=== PATIENT | male | born 1975 | race Caucasian/White ===

== ENCOUNTER → 2022-10-24 11:14 | Outpatient (CLI) | payer MEDICARE, SELFPAY ==
--- NOTE | 2022-10-24 11:20 | XR_ITS ---
FINAL REPORT CLINICAL HISTORY: pain FINDINGS: Three Views were obtained. There is no acute fracture. There is no malalignment. The disc spaces are maintained. IMPRESSION: No acute process. Reviewed, Interpreted and Dictated by Pascual Marino MD Transcribed by Carlos Dacosta Authenticated and [facility]
== END ==
LOC: RAD 11:15
PROVIDERS: PCP Family Medicine; Visit Provider Family Medicine
DX: M54.2 Cervicalgia (principal)
CPT/HCPCS: 72040

== ENCOUNTER → 2022-11-30 14:41 | Outpatient (CLI) | payer MEDICARE, SELFPAY ==
--- NOTE | 2022-11-30 14:41 | MR_ITS ---
FINAL REPORT TECHNIQUE: Multiplanar MR without contrast CLINICAL HISTORY: neck pain, RUE radiculopathy, positive Spurling s FINDINGS: Limited images of the posterior fossa are unremarkable. Alignment is normal. Cervical spinal cord shows normal signal and contour. C2-3: Unremarkable C3-4: Unremarkable C4-5: Unremarkable C5-6: Minimal annular disc bulge without canal stenosis. C6-7: Unremarkable C7-T1: Unremarkable IMPRESSION: Minimal annular disc bulge at C5-6. Reviewed, Interpreted and Dictated by Calli Tena MD Transcribed by Shilpa Beltran Authenticated and [facility]
--- NOTE | 2022-11-30 14:50 | XR_ITS ---
FINAL REPORT CLINICAL HISTORY: LOOKING FOR METAL IN EYE. PRIOR HX METAL IN RIGHT EYE COMPARISON: None FINDINGS: ORBITS Look up and look down views were obtained. No fracture is identified. The sinuses are clear. No metallic foreign body is identified. IMPRESSION: No foreign body identified in the orbits. Reviewed, Interpreted and Dictated by Calli eTna MD Transcribed by Yoli Sow Authenticated and [facility]
== END ==
LOC: RAD 14:41
PROVIDERS: PCP Family Medicine; Visit Provider Physician Assistant
DX: M54.2 Cervicalgia (principal); H05.53 Retained (old) foreign body following penetrating wound of bilateral orbits
CPT/HCPCS: 70200; 72141; 76376

== ENCOUNTER 2023-11-13 10:25 | Outpatient (CLI) | payer MEDICARE, SELFPAY ==
--- NOTE | 2023-11-13 10:26 | CT_ITS ---
FINAL REPORT TECHNIQUE: The patient was injected with IV contrast. Axial images were obtained through the chest in a PE protocol. 3-D reconstruction images were also performed. Individualized dose reduction techniques using automated exposure control or adjustment of the MA and/or KV according to patient's size were employed. CLINICAL HISTORY: cp/dyspnea/abnl ecg/syncope COMPARISON: None FINDINGS: Mediastinal vasculature is adequately opacified. No pulmonary artery filling defects are identified to suggest PE. There is no aortic dissection. There is no axillary adenopathy. There is no hilar or mediastinal adenopathy. The heart size is normal. There is no pericardial or pleural effusion. Limited images of the upper abdomen show fatty infiltration of the liver and multiple gallstones in the gallbladder.. No suspicious infiltrate or nodule is identified. IMPRESSION: No pulmonary embolus or dissection. Fatty infiltration of the liver and multiple gallstones in the gallbladder. Reviewed, Interpreted and Dictated by Pascual Marino MD Transcribed by Jessica Koroma Authenticated and [facility]
[2023-11-13] MEDS: SODIUM CHLORIDE 0.9% 10ML SYR (RAD ONLY) 10 ML IV (10:53)
[2023-11-13] MEDS: IOPAMIDOL-370 (76%);100ML BOTTLE 75 ML IV (10:53)
[2023-11-13] MEDS: 0.9 % SODIUM CHLORIDE 50 ML VIAL IV (10:56)
[2023-11-13 10:57] LABS: Blood Urea Nitrogen 9 mg/dl (9-20); Estimated Glomerular Filt Rate 103 ml/min (>60); GFR (African American) 125 ML/MIN (>60)
== END 2023-11-13 23:59 | disposition home or self-care (01) ==
LOC: RAD 10:26
PROVIDERS: PCP Physician Assistant; Visit Provider Nurse Practitioner
DX: R55 Syncope and collapse (principal); R94.31 Abnormal electrocardiogram [ECG] [EKG]; R06.00 Dyspnea, unspecified; R07.9 Chest pain, unspecified; E87.6 Hypokalemia; Z72.0 Tobacco use
CPT/HCPCS: 36415; 71275; 82565; 84520; Q9967

== ENCOUNTER 2023-11-23 18:00 | Outpatient (CLI) | payer MEDICARE, SELFPAY ==
[2023-11-23 18:38] LABS: Basophils # 0.1 K/mm3 (0-0.2); Basophils % 0.6 % (0.1-2.0); Eosinophils # 0.2 K/mm3 (0.0-0.4); Eosinophils % 1.9 % (0.1-12.0); Hematocrit 49.2 % (42.0-52.0); Hemoglobin 16.3 g/dL (14.1-18.0); Lymphocytes # 1.5 K/mm3 (0.7-4.5); Lymphocytes % 17.9 % (10-50); Mean Corpuscular HGB Conc 33.1 g/dL (31.8-35.4); Mean Corpuscular Hemoglobin 31.3 pg (27.0-31.2); Mean Corpuscular Volume 94.7 fl (80-94); Mean Platelet Volume 10.7 fl (7.4-10.4); Monocytes # 0.6 K/mm3 (0.1-1.0); Monocytes % 6.6 % (1.7-9.3); Neutrophils # 6.2 K/mm3 (1.8-7.8); Platelet Count 220 K/mm3 (142-424); Red Cell Distribution Width 13.2 % (11.5-17.5); White Blood Count 8.4 K/mm3 (4.8-10.8)
[2023-11-23 18:58] LABS: Alanine Aminotransferase 48 U/L (12-78); Albumin Level 4.3 g/dl (3.5-5.0); Alkaline Phosphatase 132 U/L (38-126); Anion Gap 9.6 mEq/L (5-15); Aspartate Amino Transferase 40 U/L (17-59); Bilirubin,Direct 0.3 mg/dl (0.0-0.4); Bilirubin,Indirect 0.4 mg/dL (0.0-0.9); Bilirubin,Total 0.7 mg/dl (0.2-1.3); Bilirubin,Unconjugated 0.4 mg/dL (0.0-1.1); Blood Urea Nitrogen 11 mg/dl (9-20); Calcium 9.4 mg/dl (8.4-10.2); Carbon Dioxide 26 mmol/L (22.0-30.0); Chloride 108 mmol/L (98-107); Chol/HDL Ratio 5.9 (1-3.5); Cholesterol 165 mg/dl (140-200); Estimated Glomerular Filt Rate 120 ml/min (>60); GFR (African American) 146 ML/MIN (>60); Glucose 110 mg/dl (74-100); HDL Cholesterol 28 mg/dl (40-60); Potassium 3.6 mmoL/L (3.5-5.1); Sodium 140 mmol/L (136-145); Total Protein,Serum 6.8 g/dl (6.3-8.2); Triglycerides 204 mg/dl (30-150); VLDL Cholesterol 41 mg/dL (0-40)
[2023-11-23 19:04] LABS: Hemoglobin A1C 5.8 % (4.0-6.0)
[2023-11-23 19:26] LABS: Thyroid Stimulating Hormone 2.79 uIU/mL (0.465-4.68)
== END 2023-11-23 23:59 | disposition home or self-care (01) ==
LOC: LAB.DROPOF 11-24 09:16
PROVIDERS: Nurse Practitioner; PCP Nurse Practitioner Acute Care; Visit Provider Nurse Practitioner Acute Care
DX: R94.31 Abnormal electrocardiogram [ECG] [EKG] (principal); R06.00 Dyspnea, unspecified; R07.9 Chest pain, unspecified; Z72.0 Tobacco use; Z79.899 Other long term (current) drug therapy
CPT/HCPCS: 80048; 80061; 80076; 83036; 83735; 84439; 84443; 85025

== ENCOUNTER 2023-12-18 08:08 | Outpatient (CLI) | payer MEDICARE, SELFPAY ==
--- NOTE | 2023-12-18 08:09 | NM_ITS ---
APPROVED REPORT Exam: Nuclear Stress Test Indication: Chest pain, SOB, HTN, Hx of VT, Tobacco use, Family history Patient Location: Outpatient Stress Tech: Rachael Carmen MI Tech:Donita Manning, ARRT, RT (R)(N) Ht: 6 ft 0 in Wt: 170 lbs HR: 90 bpm BP: 126/82 mmHg BSA: 1.99 m2 TID: 1.15 BMI: 15.0 History: Chest pain, SOB, HTN, Hx of VT, Tobacco use, Family history Procedure: Patient received 0.4 mg of intravenous Lexiscan, resting heart rate 90 bpm, resting blood pressure 126/82 mmHg, with Lexiscan maximum heart rate achieved was 109 bpm which is % of the maximum predicted heart rate and blood pressure was 128/81 mmHg. With Lexiscan, patient denied any complaint of chest pain. Cardiac Stress and Resting SPECT Images: Cardiac Stress and Resting SPECT images were obtained using technetium 99m Myoview 32.3 mCi stress and 9.88 mCi at rest. Technically difficult study due to proximity of GI radiotracer uptake to the inferior LV border. This may affect the diagnostic interpretation of the study findings. Resting and stress imaging in supine and prone positions demonstrate a medium sized, moderate, predominantly fixed perfusion defect in the inferior LV wall. There is mild region of surrounding reversibility. Gated imaging demonstrates mild reduction in global LV systolic function. There is moderate hypokinesis of the basal inferior LV wall. Conclusion: Medium sized, moderate, predominantly fixed perfusion defect in the inferior LV wall. There is mild region of surrounding reversibility. Gated imaging demonstrates mild reduction in global LV systolic function. There is moderate hypokinesis of the basal inferior LV wall. Electronically signed by : Kenya Byrd MD 12/25/2023 13:03:14
--- NOTE | 2023-12-18 08:11 | CA_ITS ---
APPROVED REPORT EXAM: Comprehensive 2D, Doppler, and color-flow Echocardiogram Ship Propeller Finisher: Yaa Infante RVT Ht: 6 ft 0 in Wt: 169lbs BSA: 1.98 BP: 134/78 mmHg Indications: CP,DYSPENA,SMOKER,FATIGUE,HOLDER'S Echo Enhancing Agent Indication: Rule out Shunt Agent(s) / Amount(s) Used: Agitated Saline 10 cc 2D Dimensions LA Volume 31.10 mL LA Volume Index 15.71 mL/m2 (M/F) 16-34 M-Mode Dimensions RVDd 2.40 cm (0.9-2.6) LA Diam 3.16 cm (1.9-4.0) LVDd 4.40 cm (3.5-5.7) LVDs 2.75 cm (3.5-5.7) IVSd 0.89 cm (0.6-1.1) PWd 0.61 cm (0.6-1.1) EF (Teich) 67.70% FS 37.50% EDV (Teich) 87.70 mL TAPSE 1.98 (<1.7) ESV (Teich) 28.30 mL LV Diastology E Decel Time 220 (160-240 msec) E/A Ratio 1.3 Aortic Valve RON Index 1.69 cm2/m2 AoV Peak Gomez. 120.0 (50-130 cm/s) AO Peak GR. 5.70 mmHg AO Mean GR. 3.20 (<5 mmHg) AO VTI 22.3 (18-25 cm) RON (VTI) 3.44 (2.5-4.5 cm2) Mitral Valve MV E Max Gomez. 66.0 (40-130 cm/s) MV A Velocity 51.0 (40-130 cm/s) E/A Ratio 1.28 MV PHT 64.0 ms Pulmonary Valve PV Peak Velocity 72.0 (50-150 cm/s) Left Ventricle The left ventricle is normal size. The left ventricular systolic function is normal. The left ventricular ejection fraction is within the normal range. There is normal left ventricular wall thickness. There is normal LV segmental wall motion. The left ventricular diastolic function is normal. LVEF is 55%. Right Ventricle The right ventricle is normal size. The right ventricular systolic function is normal. Atria The left atrium size is normal. The right atrium size is normal. There is no Doppler evidence of interatrial shunt. Agitated saline administration (bubble study) demonstrates presence of interatrial shunt. Aortic Valve The aortic valve opens well. There is no aortic valvular stenosis. No aortic regurgitation is present. Mitral Valve The mitral valve is normal in structure. No evidence of mitral valve stenosis. There is no mitral valve regurgitation noted. Tricuspid Valve The tricuspid valve leaflets are thin and pliable. Trace tricuspid regurgitation. There is insufficient TR jet to estimate RVSP. Pulmonic Valve The pulmonary valve is normal in structure. Trace pulmonic regurgitation. Great Vessels The aortic root is normal in size. The ascending aorta is not well-visualized. IVC is normal in size and collapses >50% with inspiration. Pericardium There is no pericardial effusion. Other Information Study Quality: Adequate Conclusion Normal biventricular size and systolic function. No significant valvular stenosis or regurgitation. Agitated saline administration (bubble study) demonstrates presence of interatrial shunt. In the setting of positive interatrial shunt, further evaluation with cardiac MRI (cardiomyopathy and shunt protocol) to assess Qp:Qs ratio is recommended. Electronically signed by : Kenya Byrd MD 12/24/2023 11:50:45
[2023-12-18] MEDS: REGADENOSON 0.4MG/5ML SYRINGE 0.400000000000000022 MG IV (09:15)
[2023-12-18] MEDS: SODIUM CHLORIDE 0.9% 10ML SYR (RAD ONLY) 10 ML IV ×2 (09:15)
[2023-12-18] MEDS: ISOTOPE MYOVIEW (PER STUDY) 1 DOSE IV (09:15)
--- NOTE | 2023-12-18 09:34 | CA_ITS ---
APPROVED REPORT Exam: Pharmacologic Technologist: Rachael Gonzalez, Ht: 6 ft 0 in Wt: 172 lbs BSA: 2.00 m2 HR: 85 bpm BP: 126/82 mmHg Rhythm: NSR Medical History Medications: Lisinopril,,,,, Gabapentin,,,,, Diazepam,,,,, Tramadol,,,,, MeLOXICAM,,,,, Seroquel,,,,, PaXIL,,,,, CeleBREX,,,,, Cyclobenzaprine,,,,, Hydroxyzine HCI,,,,, Stress Test Details Test: LEXISCAN Reason for pharmacologic stress test: physical limitation. HR Resting HR: 90 bpm Max Heart Rate (APMHR): 171 bpm Max HR Achieved: 109 bpm Target HR (85% APMHR): 145 bpm % of APMHR: 64 Recovery HR: 98 bpm BP Resting BP: 126.0/82.0 mmHg Max BP: 128.0/81.0 mmHg Recovery BP: 128.0/81.0 mmHg ECG Resting ECG: Normal sinus rhythm, non-specific ST changes in inferolateral leads Stress ECG: No significant ST changes Arrhythmia: None Clinical Exercise duration: 04:01 min Highest Stage Achieved: Stress ECG Conclusion Symptoms: dizziness, chest tightness, cough Arrhythmias/Ectopy: None ST-T Changes: No significant ST changes Conclusion: Non-diagnostic ECG portion of stress test due to baseline abnormalities. Myoview images are reported separately. Test Summary REST 02:28 . . 90 . 126/ 82 . . Stage 1 . . . . . . . Myoview Injected Stage 1 01:00 . . 104 . . . . Stage 2 01:00 . . 106 . 126/ 74 . . Stage 3 01:00 . . 105 . 109/ 75 . . Stage 4 01:00 . . 103 . 125/ 75 . . Stage 4 01:01 . . 102 . 125/ 75 . Stop exercise at 04:01 RECOVERY 01:00 . . 102 . . . . RECOVERY 02:00 . . 98 . 122/ 81 . . RECOVERY 02:31 . . 94 . 128/ 81 . . Electronically signed by : Kenya Byrd MD 12/24/2023 14:00:18
== END 2023-12-18 23:59 | disposition home or self-care (01) ==
LOC: RAD 08:09
PROVIDERS: PCP Physician Assistant; Visit Provider Nurse Practitioner
DX: R94.31 Abnormal electrocardiogram [ECG] [EKG] (principal); R06.00 Dyspnea, unspecified; R07.9 Chest pain, unspecified; Z72.0 Tobacco use
CPT/HCPCS: 78452; 93017; 93018; 93306; A9502; J2785

== ENCOUNTER 2024-02-13 10:45 | Outpatient (CLI) | payer MEDICARE, SELFPAY ==
[2024-02-13 11:08] LABS: Blood Urea Nitrogen 9 mg/dl (9-20); Estimated Glomerular Filt Rate 120 ml/min (>60); GFR (African American) 145 ML/MIN (>60)
== END 2024-02-13 23:59 | disposition home or self-care (01) ==
LOC: RAD 10:46
PROVIDERS: Internal Medicine; PCP Physician Assistant; Visit Provider Nurse Practitioner
DX: R93.1 Abnormal findings on diagnostic imaging of heart and coronary circulation (principal)
CPT/HCPCS: 36415; 82565; 84520

== ENCOUNTER 2024-02-26 10:12 | Outpatient (CLI) | payer MEDICARE, SELFPAY ==
--- NOTE | 2024-02-26 10:13 | MR_ITS ---
APPROVED REPORT Statue Maker: CLINICAL INDICATION Evaluation for interatrial shunt TECHNIQUE Image Acquisition: Cardiac magnetic resonance (CMR) was performed on Siemens Espree MRI 1.5T scanner. Software platform sequences were performed using the Siemens Unit[employer] Software MR B19 platform. A set of three-plane, low-resolution, large [id number] localizers were initially acquired. Then axial, coronal, sagittal TrueFISP, as well as axial HASTE images, were obtained. These were followed by gated TrueFISP breathold cinematic sequences obtained in the short axis with 8 mm slices and 2 mm gaps, 2-chamber (vertical long axis), 3-chamber, 4-chamber (horizontal long axis). A bolus of contrast was injected intravenously with first-pass sequences obtained in the short axis and four-chamber planes. After approximately 10 minutes, a TI structural manager sequence was performed to determine the optimal TI time. Using the optimized TI time, delayed contrast enhancement segmented inversion???recovery TurboFLASH sequences were obtained in the short axis, 2-chamber, 3-chamber, and 4-chamber projections. 2D-velocity phase mapping was performed. Functional parameters were calculated by offline analysis on an independent workstation ([employer], [id number]). Contrast: ProHance??? (Gadoteridol) FINDINGS MORPHOLOGY AND FUNCTION Left ventricle: The left ventricle is normal in size. The indexed left ventricular end-diastolic volume (LVEDVi) is 69 ml/m2 (reference range 57-105 ml/m2 in males, 56-96 ml/m2 in females). Normal left ventricular systolic function is present. There is normal left ventricular wall thickness. There are no regional wall motion abnormalities noted. LVEF is calculated at 56.0% (reference range 57-77%). Right ventricle: The right ventricle is normal in size. The indexed right ventricular end-diastolic volume (RVEDVi) is 69 ml/m2 (reference range 61-121 ml/m2 in males, 48-112 ml/m2 in females). Normal right ventricular systolic function is present. RVEF is calculated at 54.7% (reference range 52-72% in males, 51-71% in females). Atria: The interatrial septum appears hypermobile. The left atrium is normal in size. The maximum indexed left atrial volume is 34 ml/m2 (reference range 26-52 ml/m2 in males, 27-53 ml/m2 in females). The right atrium is normal in size. The maximum indexed right atrial volume is 18 ml/m2 (reference range 18-90 ml/m2). Aorta: The diameter of the aortic annulus is normal, measuring 26 mm (coronal view reference range 21-30 mm in males, 19-27 mm in females). The diameter of the aortic sinus is normal, measuring 33 mm (coronal view reference range 25-42 mm in males, 24-36 mm in females). The diameter of the sinotubular junction is normal, measuring 27 mm (coronal view reference range 18-32 mm in males, 18-28 mm in females). The diameters of the ascending and descending thoracic aorta are normal. Main pulmonary artery: The main pulmonary artery diameter is normal. Pericardium: The pericardial thickness is normal. The pericardial thickness measures 1.7 mm (normal < 4.0 mm). There is no pericardial effusion. VALVES The valvular morphologies in the visualized sequences appear normal. There is no significant valvular stenosis or regurgitation of the mitral, aortic, tricuspid, or pulmonic valve noted visually. Systolic anterior motion of the mitral valve is not visualized. Ratio of pulmonary to systemic flow, Qp:Qs ratio = 0.8 (normal < or = 1.2, hemodynamically significant shunt > 1.5), demonstrating no evidence of hemodynamically significant shunt. TISSUE CHARACTERIZATION Resting Perfusion: Normal myocardial blood flow at rest. No evidence of resting hypoperfusion. Myocardial Fibrosis and/or edema: Normal gadolinium kinetics are present. No evidence of late gadolinium enhancement is noted, consistent with absence of myocardial scarring, infarction, or necrosis. T2-weighted imaging demonstrates no evidence of myocardial edema or inflammation. OTHER No other significant findings are noted. However, this exam is focused on the cardiac structure and function. IMPRESSION Normal LV size with normal LV systolic function. LVEDVi= 69 ml/m2 and LVEF= 56.0%. Normal RV size with normal RV systolic function. RVEDVi= 69 ml/m2 and RVEF= 54.7%. Hypermobile interatrial septum. No atrial enlargement. No CMR evidence of myocardial scarring, infarction, or necrosis. No evidence of myocardial edema or inflammation. Perfusion analysis demonstrates normal blood flow at rest with no evidence of resting hypoperfusion. Ratio of pulmonary to systemic flow, Qp:Qs ratio = 0.8 (normal < or = 1.2, hemodynamically significant shunt > 1.5), demonstrating no evidence of hemodynamically significant shunt. Overall, this CMR demonstrates normal biventricular structure and systolic function. The interatrial septum appears hypermobile, raising the suspicion of possible presence of interatrial shunt (e.g. PFO). However, the RV size and function, as well as QP:QS ratio, are normal, suggestive of absence of hemodynamically significant interatrial shunting. COMPARISON None CRITICAL RESULT None COMMUNICATION Per this written report The findings of this cardiac MR were reviewed, reported, and signed by Dario Byrd MD (Movie Operator). Conclusion Electronically signed by : Kenya Byrd MD 03/25/2024 10:23:23
[2024-02-26] MEDS: 0.9 % SODIUM CHLORIDE 50 ML VIAL 20 ML IV (11:31)
[2024-02-26] MEDS: GADOTERIDOL INJ 20ML SYRINGE 17 ML IV (11:31)
[2024-02-26] MEDS: SODIUM CHLORIDE 0.9% 10ML SYR (RAD ONLY) 10 ML IV (11:32)
== END 2024-02-26 23:59 | disposition home or self-care (01) ==
LOC: RAD 10:13
PROVIDERS: PCP Physician Assistant; Visit Provider Nurse Practitioner
DX: Q24.8 Other specified congenital malformations of heart (principal); R07.9 Chest pain, unspecified; R06.00 Dyspnea, unspecified
CPT/HCPCS: 75561; A9576

== ENCOUNTER 2024-03-03 08:38 | Day surgery (SDC) | payer MEDICARE, SELFPAY ==
[2024-03-03] VITALS (10 sets, daily range): BP systolic 101–144; BP diastolic 61–89; PULSE 67–94; RESP 15–18; TEMP 36.7; O2SAT 97–100; BMI 23.0
--- NOTE | 2024-03-03 07:08 | IR_ITS ---
APPROVED REPORT Patient Location: Outpatient Word Processing Supervisor: TRI Murray RT (R) PROCEDURES Left heart catheterization Left ventriculogram Selective coronary angiogram INDICATION Angina pectoris, Abnormal Myoview, Informed consent was obtained prior to the procedure. COMPLICATIONS NONE Estimated Blood Loss: LESS THAN 10 ML TECHNIQUE One percent lidocaine used to anesthetize the right anterior aspect of the wrist. The right radial artery was accessed via the Seldinger technique. A 6 [place] sheath was placed in the right radial artery. 2.5 mg of Verapamil, 800 mcg of nitroglycerin, 1mg Lidocaine and 5000 U Heparin were given through the arterial sheath. The papa catheter was also used to perform left heart catheterization, left ventriculogram and selective coronary angiogram. At the end of the procedure the sheath was removed good hemostasis was achieved using Traclet band, patient was transferred to the postop holding area in stable condition. ANGIOGRAPHIC RESULTS The left main artery Normal The left anterior descending artery Has mid vessel smooth 20% stenosis The circumflex artery Nondominant normal The right coronary artery Large dominant with proximal concentric 30% stenoses mid vessel and distal 20 to 30% stenoses The PEREZ ventriculogram reveals Normal 65% The left ventricular end-diastolic pressure 10 mmHg IMPRESSION Mild to moderate coronary disease mostly in the right coronary artery as described above with some involvement involving the mid LAD Normal ejection fraction Normal LVEDP PLAN 1. Medical management with aggressive risk factor modification Electronically signed by : Kevin Glaser MD 03/03/2024 10:50:06
[2024-03-03 09:05] LABS: Basophils # 0.1 K/mm3 (0-0.2); Basophils % 1.3 % (0.1-2.0); Eosinophils # 0.3 K/mm3 (0.0-0.4); Eosinophils % 2.8 % (0.1-12.0); Hematocrit 49.5 % (42.0-52.0); Hemoglobin 16.1 g/dL (14.1-18.0); Lymphocytes # 1.8 K/mm3 (0.7-4.5); Lymphocytes % 18.5 % (10-50); Mean Corpuscular HGB Conc 32.6 g/dL (31.8-35.4); Mean Corpuscular Hemoglobin 31.9 pg (27.0-31.2); Mean Corpuscular Volume 97.8 fl (80-94); Mean Platelet Volume 8.9 fl (7.4-10.4); Monocytes # 0.6 K/mm3 (0.1-1.0); Monocytes % 5.8 % (1.7-9.3); Neutrophils # 6.9 K/mm3 (1.8-7.8); Neutrophils % 71.6 % (37.0-80.0); Platelet Count 220 K/mm3 (142-424); Red Blood Count 5.06 M/mm3 (4.60-6.20); Red Cell Distribution Width 13.6 % (11.5-17.5); White Blood Count 9.7 K/mm3 (4.8-10.8)
[2024-03-03 09:09] LABS: Chloride 109 mmol/L (98-107); Potassium 3.2 mmoL/L (3.5-5.1); Sodium 141 mmol/L (136-145)
[2024-03-03 09:12] LABS: Blood Urea Nitrogen 7 mg/dl (9-20); Creatinine Clearance Estimated 122 mL/min (50-200); Estimated Glomerular Filt Rate 103 ml/min (>60); GFR (African American) 124 ML/MIN (>60)
[2024-03-03 09:13] LABS: Anion Gap 7.2 mEq/L (5-15); Calcium 8.8 mg/dl (8.4-10.2); Carbon Dioxide 28 mmol/L (22.0-30.0); Glucose 107 mg/dl (74-100)
[2024-03-03] MEDS: HEPARIN 1,000 UNITS/ML 10ML VIAL (CATH LAB) 10000 UNIT IV (10:20)
[2024-03-03] MEDS: VERAPAMIL 2.5MG/ML 2ML VIAL 2.5 MG IV (10:20)
[2024-03-03] MEDS: LIDOCAINE 1% 10ML MDV 20 ML IJ (10:20)
[2024-03-03] MEDS: FENTANYL 100MCG/2ML VIAL 50 MCG IV (10:21)
[2024-03-03] MEDS: 0.9 % SODIUM CHLORIDE 500 ML 25 ML IV (10:21)
[2024-03-03] MEDS: HEPARIN 1,000 UNITS/500ML NS (CATH LAB) 3000 UNIT IV (10:21)
[2024-03-03] MEDS: diphenhydrAMINE 50MG/ML VIAL 50 MG IV (10:22)
[2024-03-03] MEDS: MIDAZOLAM HCL 1MG/1ML 5ML VIAL 1 MG IV (10:24)
[2024-03-03] MEDS: IOPAMIDOL-370 (76%);100ML BOTTLE 50 ML IV (12:31)
== END 2024-03-03 12:59 | disposition home or self-care (01) ==
PROVIDERS: PCP Family Medicine; Visit Provider Internal Medicine
DX: R93.1 Abnormal findings on diagnostic imaging of heart and coronary circulation (principal); R07.9 Chest pain, unspecified; R06.00 Dyspnea, unspecified; I25.118 Atherosclerotic heart disease of native coronary artery with other forms of angina pectoris; Z79.899 Other long term (current) drug therapy
CPT/HCPCS: 80048; 85025; 93458; 99152; C1725; C1769; J1200; J1644; J2250; J3010; Q9967

== ENCOUNTER 2024-11-24 16:39 | Outpatient (CLI) | payer MEDICARE, SELFPAY ==
--- OUTSIDE RECORDS SUMMARY | 2024-11-24 16:41 | XMS_ITS | Data Portability ---
[facility] Organization [facility] Address [address] [place] [address] Assessment No assessment recorded. Plan of Treatment Reminders Order Date Submit Date Provider Last Modified By Organization Details Last Modified Time Details Appointments Establish ed Visit 15 min 2024 09:00A M MAT PAL NP Not available Not available Not available Lab drug screen, urine - can be urine or blood 2024 025 [facility] (Registration ), [address] [place] [address] [place], [address], 11/18/2024 10:56:39 drug screen, urine 2024 025 [facility] (Registration ), [address] [place] [address] [place], [address], 11/10/2024 17:46:17 Referral None recorded. Procedures None recorded. Surgeries None recorded. Imaging MRI, lumbar spine, w/o contrast 2024 025 [facility] Scheduling, [address] [place], [address], 11/10/2024 21:57:24 MRI, thoracic spine, w/o contrast 2024 025 [facility] Scheduling, [address] [place], [address], 11/10/2024 21:52:31 Medication Orders Valium 5 mg tablet 2024 025 [facility], [address] [facility] [address] [place], [place], [id number], 11/11/2024 14:25:01 Patient TargetsNo targets recorded. Patient InstructionsNo instructions recorded. Reason for Referral None Reported. Results Created Date Observation Date Name Description Value Unit Range Abnormal Flag Note LastModifiedBy Organization Detail LastModifiedTime 11/11/1911/10/2024 UR DRUG SCREE N note SEE NOTE Order ing Provi loc: ARAMIS CHAVARRIA Not Available [address] [place], [address], 11/10/2024 17:46:17 11/11/19 25 11/10/2024 UR DRUG SCREE N ur cocaine qual NEGATI VE 150NG /mL det limit= Not Available [address] [place], [place], [address], 11/10/2024 17:46:17 11/11/19 25 11/10/2024 UR DRUG SCREE N ur cannabinoid( THC) qual NEGATI VE 50NG/ mL det limit= Not Available [address] [place], [place], [address], 11/10/2024 17:46:17 11/11/19 25 11/10/2024 UR DRUG SCREE N ur amphetamine qual NEGATI VE 500NG /mL det limit= Not Available [address] [place], [address], 11/10/2024 17:46:17 11/11/19 25 11/10/2024 UR DRUG SCREE N ur barbiturate qual NEGATI VE 200NG /mL det limit= Not Available [address] [place], [address], 11/10/2024 17:46:17 11/11/19 25 11/10/2024 UR DRUG SCREE N ur benzodiazepi ne qual POSITI VE 200NG /mL det limit= abnormal Not Available [address] , [place], [address], 11/10/2024 17:46:17 11/11/19 25 11/10/2024 UR DRUG SCREE N ur opiates qual NEGATI VE 300NG /mL det limit= Not Available [address] [place], [address], 11/10/2024 17:46:17 11/11/19 25 11/10/2024 UR DRUG SCREE N ur phencyclidin e (pcp) qual NEGATI VE 25NG/ mL det limit= Not Available [address] , [place], [address], 11/10/2024 17:46:17 11/11/19 25 11/10/2024 UR DRUG SCREE N ur tricylic group qual NEGATI VE 1000N G/m det limit= Not Available [address] [place], [place], [address], 11/10/2024 17:46:17 11/11/19 25 11/10/2024 UR DRUG SCREE N methadone urine NEGATI VE 300NG /mL det limit= Not Available [address] [place], [place], [address], 11/10/2024 17:46:17 11/11/19 25 11/10/2024 UR DRUG SCREE N ur MDMA (ecstacy) ql NEGATI VE 500NG /mL det limit= Not Available [address] [place], [address], 11/10/2024 17:46:17 11/11/19 25 11/10/2024 UR DRUG SCREE N ur oxycodone ql NEGATI VE 100NG /mL det limit= Not Available [address] [place], [address], 11/10/2024 17:46:17 11/11/19 25 11/10/2024 UR DRUG SCREE N ur buprenorphin e qual NEGATI VE 10NG/ mL det limit= Not Available [address] [place], [address], 11/10/2024 17:46:17 11/11/19 25 11/10/2024 UR DRUG SCREE N performing lab SEE NOTE ML - [facility] [address] [employer] [address] Not Available [address] [place], [address], 11/10/2024 17:46:17 11/11/19 25 11/10/2024 BENZO DIAZE PINES GC/MS CONF note See Note Order ing Provi loc: ARAMIS KWOK LAND Not Available [address] , [place], [address], 11/16/2024 09:38:28 11/11/19 25 11/10/2024 BENZO DIAZE PINES GC/MS CONF benzodiazepi jayson GC/MS qual Positi ve () abnormal Not Available [address] [place], [address], 11/16/2024 09:38:28 11/11/19 25 11/10/2024 BENZO DIAZE PINES GC/MS CONF nordiazapam GC/MS qual Positi ve () abnormal Not Available [address] [place], [address], 11/16/2024 09:38:28 11/11/19 25 11/10/2024 BENZO DIAZE PINES GC/MS CONF nordiazapam GC/MS conf 329 NG/mL cutoff =150 Not Available [address] [place], [address], 11/16/2024 09:38:28 11/11/19 25 11/10/2024 BENZO DIAZE PINES GC/MS CONF oxazapam GC/MS qual Positi ve () abnormal Not Available [address] [place], [address], 11/16/2024 09:38:28 11/11/19 25 11/10/2024 BENZO DIAZE PINES GC/MS CONF oxazapam GC/MS conf 466 NG/mL cutoff =150 Not Available [address] [place], [address], 11/16/2024 09:38:28 11/11/19 25 11/10/2024 BENZO DIAZE PINES GC/MS CONF oh-alprazola m GC/MS qual Negati ve cutoff =150 Perfo rmed At: UI, [facility] [address] [place], [address] Rakesh Romero , PhD, Phone : [phone] Not Available [address] [place], [address], 11/16/2024 09:38:28 11/11/19 25 11/10/2024 BENZO DIAZE PINES GC/MS CONF performing lab see note LC2 - [facility] CLIEN T# [id number] [address] [address] Not Available [address] [place], [address], 11/16/2024 09:38:28 Result Notes None recorded. Medical Equipment None Reported. Allergies Allergen ID Allergen Name Allergen Category Reaction Reaction Severity Criticality Documentation Date Start Date Code Code System Note Provider Name and Address Organization Details Recorded Time 863579 Product containin g glucocort icoid (product) medicatio n other Not available low 11/10/2024 43154 6006 SNOMED Lorenshara wallace [place] - [facility] - [place] & [place] 04/21/202 5 15:15:19 Medications Name Sig Start Date Stop Date Status Note LastModified by Organization Details LastModified Time cyclobenzap rine 10 mg tablet TAKE ONE TABLET BY MOUTH THREE TIMES DAILY AT 9AM, 1PM AND 5PM FOR SPASMS active Not Available Not Available No t Available atorvastati n 40 mg tablet TAKE 1 TABLET BY MOUTH DAILY active Not Available Not Available No t Available meloxicam 15 mg tablet TAKE ONE TABLET BY MOUTH DAILY AT 9 AM FOR PAIN active Not Available Not Available No t Available lisinopril 20 mg tablet TAKE ONE TABLET BY MOUTH EVERY DAY active Not Available Not Available No t Available gabapentin 400 mg capsule TAKE ONE CAPSULE BY MOUTH AT BEDTIME NEEDED FOR PAIN active Not Available Not Available No t Available tramadol 50 mg tablet TAKE TWO TABLETS BY MOUTH THREE TIMES DAILY NEEDED FOR PAIN 11/10 completed Not Available Not Available Not Available quetiapine 100 mg tablet TAKE 1 TABLET BY MOUTH DAILY active Not Available Not Available No t Available gabapentin 100 mg capsule TAKE TWO CAPSULES BY MOUTH THREE TIMES DAILY NEEDED FOR PAIN, IF causes sedation MAY take TAKE ONE CAPSULE BY MOUTH FOUR TIMES DAILY OR TAKE ONE CAPSULE TWICE DAILY and 2 AT BEDTIME 11/10 completed Not Available Not Available Not Available lisinopril 40 mg tablet TAKE 1 TABLET BY MOUTH DAILY active Not Available Not Available No t Available diazepam 5 mg tablet TAKE 1/2 TABLET BY MOUTH NEEDED 2-3 times DAILY active Not Available Not Available No t Available Vitals Date Recorded Body temperature Oxygen saturation Oxygen saturation in Arterial blood by Pulse oximetry Heart rate Pain severity - 0-10 verbal numeric rating [Score] - Reported Respiratory rate Systolic blood pressure Diastolic blood pressure Provider Name and Address Organization Details Last Updated DateTime 5 98.6 [degF] 98 % 98 % 90 /min 8 16 /min 128 mm[Hg] 76 mm[Hg] Loren Day [facility] - [place] & [place] 5 15:14:18 Social History None recorded. Functional Status None recorded. Mental Status None recorded. Family History Nothing Reported. Medical History No medical history recorded. Past Encounters Encounter ID Performer Location Encounter Start Date Encounter Closed Date Diagnosis/Indication Diagnosis SNOMED-CT Code Diagnosis ICD10 Code Diagnosis Note [id number] SANDRA SHAFFER [facility] [address] [address] 11/10/2024 14:26:06 11/10/2024 16:33:54 Peripheral neuropathic pain 549544286 M79.2 Generalize d anxiety disorder 06685333 F41.1 Lumbar radiculopathy 128 589088 M54.16 Chronic th oracic back pain 5839823971 04570 M54.6 G89.29 Health Concerns Section Related Observation LastModified by Organization Detai ls LastModified Time None Recorded Concern Status LastModified by Organization Details LastModified Time None Recorded Advance Directives Directive None Recorded Payers Encounter Date Sequence Insurance Name Policy Number Policy Lucero Covered Member ID Lucero Member ID Guarantor Name 11/10/2024 1 [facility] (MEDICARE REPLACEMENT/A DVANTAGE - HMO) Elbert Belcher [id number] Notes Date Note Type Note Provider Name and Address Organization Details Recorded Time 11/10/2024 text/html 48 yo male in to day for f/u r/t neck, bilateral shoulders, bilateral elbows, bilateral knees, bilateral wrists, bilateral hips, bilateral ankles and feet, left upper to lower back pain. Pain is rated at 8/10, and has gotten up to 10/10 in the last month. He describes pain as frequent, aching, throbbing, cramping, burning and shooting. Sitting, standing, walking and lying down makes pain worse, heat makes it better. Pain radiates down BUE/BLE and causes weakness as well. Does not cause loss of bowel or bladder. Currently taking cyclobenzaprine 10 mg TID, gabapentin 400 mg @ hs and meloxicam 15 mg @ hs. He has tried to keep his Valium for as long as he could but is now out; He says his severe anxiety has been much worse since he hasn't been taking the Valium as he had been. He recently saw a fuel yard operator and says he has a hole in his heart and has to have a heart transplant as they are unable to repair it. He states he has had a coupe of heart attacks in the past. He gets SOA at times and does not feel that he has any energy. He cannot get on the transplant list until he can show that he's quit smoking for a year. Pt states he has tried to vape but it makes him cough more. He has cut way down on his smoking and is working on stopping soon. He has severe peripheral neuropathy and feels like there is bugs crawling in his boot at times. He also has sharp electric shocks that will ramírez through his legs causing him to jerk due to the pain. 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 He continues to have mid and low back pain and would orlin to get his MRI scheduled elizabeth at [facility]. Pain level w/rest : 12/30Pain level w/activity: 05/01Feeling down depressed or hopeless: Down at timesAre you having little interest or pleasure in doing things: NoHave you had any falls with injury in the past year: NoDo you use any illicit or recreation drugs: NoDo you or have you ever smoked tobacco: Yes - currentWhat is your level of alcohol consumption: None MAT PAL NP [address] [facility] , [place], [address], [facility] - [facility] - [place] & [place] 11/10/2024 20:34:58
--- OUTSIDE RECORDS SUMMARY | 2024-11-24 16:41 | XMS_ITS ---
Laboratory report Created on: November 18, 2024 KVNG BERRY : 1975 Sex: Male Author Organization Unknown PROBLEMS Problems List Code Description RESULTS Laboratory Orders Date Order Code Test 2024-11-10 487530 BENZODIAZEPINES CONF, MS, UR Laboratory Results Date LOINC Test Value Unit Reference Range Interpre tation 2024-11-10 [facility] 2024-11-10 3390-2 BENZODIAZEPINES P A 2024-11-10 00254-1 NORDIAZEPAM P A 2024-11-10 11817-2 NORDIAZEPAM CONF , MS, UR 329 NG/ML 2024-11-10 83155-0 OXAZEPAM P A 2024-11-10 67647-4 OXAZEPAM CONF, MS, UR 466 NG/ML 2024-11-10 11038-9 OH-ALPRAZOLAM NEG.
--- OUTSIDE RECORDS SUMMARY | 2024-11-24 16:41 | XMS_ITS | Continuity of Care Document ---
Author Organization [facility] - [facility] [place] [facility] [place] [facility] Address [address] [facility] [address] [place] [address] Assessment No assessment recorded. Plan of Treatment Reminders Order Date Submit Date Provider Last Modified By Organization Details Last Modified Time Details Appointments Establish ed Visit 15 min 2024 09:00A M MAT PAL NP Not available Not available Not available Lab drug screen, urine - can be urine or blood 2024 025 [facility] (Registration ), [address] [place] [address] [place], [address], 11/18/2024 10:56:39 drug screen, urine 2024 025 [facility] (Registration ), [address] [place] [address] [place], [address], 11/10/2024 17:46:17 Referral None recorded. Procedures None recorded. Surgeries None recorded. Imaging MRI, lumbar spine, w/o contrast 2024 025 [facility] Scheduling, [address] [place], [address], 11/10/2024 21:57:24 MRI, thoracic spine, w/o contrast 2024 025 [facility] Scheduling, [address] [place], [address], 11/10/2024 21:52:31 Medication Orders Valium 5 mg tablet 2024 025 [facility], [address] [facility] , [place], [place], [id number], 11/11/2024 14:25:01 Patient TargetsNo targets recorded. Patient Instructions Encounter Date Encounter Id Patient Instructions Last Modified By Organization Details Last Modified Time 11/10/2024 [id number] Get MRI thoracic and lumbar spine. Pt has been doing home therapy exercises for the last 6 weeks for mid and low back pain with an exercise log. Patient will bring the log in for submission to insurance if needed [email or web address] Not available 11/10/2024 20:31:20 Reason for Referral None Reported. Medical Equipment None Reported. Allergies Allergen ID Allergen Name Allergen Category Reaction Reaction Severity Criticality Documentation Date Start Date Code Code System Note Provider Name and Address Organization Details Recorded Time 235723 Product containin g glucocort icoid (product) medicatio n other Not available low 11/10/2024 20539 6006 SNOMED [facility] [place] - [facility] - [place] 15:15:19 Medications Name Sig Start Date Stop [...] 16 /min 128 mm[Hg] 76 mm[Hg] Loren [facility] [place] & [place] 5 15:14:18 Social History None recorded. Functional Status None recorded. Mental Status None recorded. Family History Nothing Reported. Medical History No medical history recorded. Past Encounters Encounter ID Performer Location Encounter Start Date Encounter Closed Date Diagnosis/Indication Diagnosis SNOMED-CT Code Diagnosis ICD10 Code Diagnosis Note [id number] SANDRA SHAFFER [facility] [address] [address] 11/10/2024 14:26:06 11/10/2024 16:33:54 Peripheral neuropathic pain 920418234 M79.2 Generalize d anxiety disorder 42242710 F41.1 Lumbar radiculopathy 128 826676 M54.16 Chronic th oracic back pain 5719364143 66791 M54.6 G89.29 Health Concerns Section Related Observation LastModified by Organization Detai ls LastModified Time None Recorded Concern Status LastModified by Organization Details LastModified Time None Recorded Payers Encounter Date Sequence Insurance Name Policy Number Policy Lucero Covered Member ID Lucero Member ID Guarantor Name 11/10/2024 1 [facility] (MEDICARE REPLACEMENT/A DVANTAGE - HMO) Elbert Belcher [id number] Notes Date Note Type Note Provider Name [...] he had been. He recently saw a baseball club manager and says he has a hole in [...] to get his MRI scheduled elizabeth at [facility]. Pain level w/rest : 6/10Pain level w/activity: 10Feeling down depressed or hopeless: Down at timesAre you having little interest or pleasure in doing things: NoHave you had any falls with injury in the past year: NoDo you use any illicit or recreation drugs: NoDo you or have you ever smoked tobacco: Yes - currentWhat is your level of alcohol consumption: None MAT PAL, SANDRA [address] [facility] , [place], [address], [facility] - [place] & [place] 11/10/2024 20:34:58
--- OUTSIDE RECORDS SUMMARY | 2024-11-24 16:41 | XMS_ITS ---
Author Organization Unknown TREATMENT PLAN [facility] Start Date Provider Encounter for Check-up [id number] [facility]
--- NOTE | 2024-11-24 16:43 | MR_ITS ---
FINAL REPORT TECHNIQUE: Multiplanar and multisequence imaging of the lumbar spine was obtained without contrast. CLINICAL HISTORY: RADICULOPATHY , LUMBAR BILATERAL LEG PAIN WITH TINGLING , NUMBNESS AND BURNING IN FEET COMPARISON: None FINDINGS: There is normal alignment of the lumbar vertebral bodies. Vertebral body height is preserved. The spinal cord ends at the level of L1. There is normal signal intensity within the substance of the distal spinal cord. No acute bone marrow edema or pathologic marrow replacement. No acute paraspinal abnormality is identified. L1-2: An annular bulge is present with degenerative endplate change and facet osteoarthropathy. There is no focal disc herniation, central canal stenosis or neuroforaminal narrowing. L2-3: An annular bulge is present with degenerative endplate change and facet osteoarthropathy. There is no focal disc herniation, central canal stenosis or neuroforaminal narrowing. L3-4: An annular bulge is present with degenerative endplate change and facet osteoarthropathy. There is mild central canal stenosis and mild left neural foraminal narrowing. L4-5: An annular bulge is present with degenerative endplate change and facet osteoarthropathy. There is no focal disc herniation, central canal stenosis or neuroforaminal narrowing. L5-S1: An annular bulge is present with degenerative endplate change and facet osteoarthropathy. There is no focal disc herniation, central canal stenosis or neuroforaminal narrowing. IMPRESSION: Mild multilevel degenerative change is present as described, without evidence of significant central canal stenosis or neural foraminal narrowing. Reviewed, Interpreted and Dictated by Chiquis Aranda MD Transcribed by Jessica Koroma Authenticated and [facility]
--- NOTE | 2024-11-24 16:44 | MR_ITS ---
FINAL REPORT TECHNIQUE: Multiplanar and multisequence MR imaging was obtained through the thoracic spine. CLINICAL HISTORY: PAIN IN THORACIC SPINE BILATERAL ARM PAIN , TINGLING AND NUMBNESS WITH SOME BURNING SENSATION IN FINGER TIPS COMPARISON: None FINDINGS: There is normal alignment of the thoracic vertebral bodies in the sagittal plane. Vertebral body height is preserved. There is no bone marrow edema or pathologic marrow replacement. Signal intensity within the substance of the spinal cord is normal. No acute paraspinal abnormality. At the T5-6 level, there is a small central disc protrusion without evidence of canal or neural foraminal narrowing. At the C6-7 level, there is a slightly larger protrusion, which produces mild mass effect upon the anterior aspect of the thecal sac. At T7-8 a left paracentral disc protrusion is noted, which makes a minimal impression on the thecal sac. At T8-9, there is a central disc protrusion which also produces minimal impression on the thecal sac. IMPRESSION: Multilevel small protrusions are present in the mid thoracic spine as described, without evidence of significant central canal stenosis or neural foraminal narrowing. Reviewed, Interpreted and Dictated by Chiquis Aranda MD Transcribed by Jessica Koroma Authenticated and [facility]
== END 2024-11-24 23:59 | disposition home or self-care (01) ==
LOC: RAD 16:40
PROVIDERS: PCP Family Medicine; Visit Provider Nurse Practitioner Family
DX: M54.6 Pain in thoracic spine (principal); M54.16 Radiculopathy, lumbar region; G89.29 Other chronic pain
CPT/HCPCS: 72146; 72148

== ENCOUNTER 2024-11-28 09:59 | Outpatient (CLI) | payer MEDICARE, SELFPAY ==
[2024-11-28 10:42] LABS: Basophils % 0.2 % (0.1-2.0); Eosinophils # 0.1 Kmm3 (0.0-0.4); Eosinophils % 2.3 % (0.1-12.0); Hematocrit 43.8 % (42.0-52.0); Hemoglobin 15.4 g/dL (14.1-18.0); Immature Granulocytes # 0.02 10^3uL; Immature Granulocytes % 0.3 %; Lymphocytes # 1.6 K/mm3 (0.7-4.5); Lymphocytes % 27.2 % (10-50); Mean Corpuscular HGB Conc 35.2 g/dL (31.8-35.4); Mean Corpuscular Hemoglobin 31.4 pg (27.0-31.2); Mean Corpuscular Volume 89.4 fl (80-94); Mean Platelet Volume 10.5 fl (7.4-10.4); Monocytes # 0.5 K/mm3 (0.1-1.0); Monocytes % 8.6 % (1.7-9.3); Neutrophils # 3.7 K/mm3 (1.8-7.8); Neutrophils % 61.4 % (37.0-80.0); Nucleated Red Blood Cells # 0 10^3/uL; Nucleated Red Blood Cells % 0 %; Platelet Count 199 K/mm3 (142-424); Red Cell Distribution Width 12.6 % (11.5-17.5); Red Cell Distribution Width-SD 41.5 fL
[2024-11-28 10:46] LABS: MANUAL DIFFERENTIAL MANUAL DIFFERENTIAL (MANUAL DIFF)
[2024-11-28 10:48] LABS: Chloride 110 mmol/L (98-107)
[2024-11-28 10:49] LABS: Potassium 3.7 mmoL/L (3.5-5.1); Sodium 140 mmol/L (136-145)
[2024-11-28 10:52] LABS: Anion Gap 9.7 mEq/L (5-15); Blood Urea Nitrogen 11 mg/dl (9-20); Calcium 9.3 mg/dl (8.4-10.2); Carbon Dioxide 24 mmol/L (22.0-30.0); Estimated Glomerular Filt Rate 120 ml/min (>60); GFR (African American) 145 ML/MIN (>60); Glucose 108 mg/dl (74-100)
[2024-11-28 11:53] LABS: Eosinophils % 1 % (0-3); Lymphocytes % 22 % (10-50); Monocytes % 9 % (2-9); Neutrophils % 68 % (42-76); Total Cells Counted 100
[2024-11-28 11:54] LABS: Platelet Estimate Normal; RBC Morphology Normal
== END 2024-11-28 23:59 | disposition home or self-care (01) ==
LOC: PREOP 09:59
PROVIDERS: PCP Family Medicine; Visit Provider Surgery
DX: L72.9 Follicular cyst of the skin and subcutaneous tissue, unspecified (principal); I25.10 Atherosclerotic heart disease of native coronary artery without angina pectoris
CPT/HCPCS: 80048; 85007; 85025; 85027

== ENCOUNTER 2024-12-04 09:19 | Outpatient (CLI) | payer MEDICARE, SELFPAY ==
--- OUTSIDE RECORDS SUMMARY | 2024-12-04 09:21 | XMS_ITS | Data Portability ---
Author Organization [place] - [facility] Address [address] [place] [address] Assessment No assessment recorded. Plan of Treatment Reminders Order Date Submit Date Provider Last Modified By Organization Details Last Modified Time Details Appointments Establish ed Visit 15 min 2024 09:00A M MAT PAL NP Not available Not available Not available Lab drug screen, urine - can be urine or blood 2024 025 [facility] (Registration ), [address] [place] [address] [place], [address], 11/18/2024 10:56:39 drug screen, urine 2024 025 [facility] (Registration ), [address] [place] [address] [place], [address], 11/10/2024 17:46:17 Referral None recorded. Procedures None recorded. Surgeries None recorded. Imaging MRI, lumbar spine, w/o contrast 2024 025 [facility] Scheduling, [address], [place], [address], 11/26/2024 08:05:45 MRI, thoracic spine, w/o contrast 2024 025 [facility] Scheduling, [address], [place], [address], 11/26/2024 08:04:25 Medication Orders Valium 5 mg tablet 2024 025 [facility], [address] [place], [place], [id number], 11/11/2024 14:25:01 Patient TargetsNo targets recorded. Patient InstructionsNo instructions recorded. Reason for Referral None Reported. Results Created Date Observation Date Name Description Value Unit Range Abnormal Flag Note LastModifiedBy Organization Detail LastModifiedTime 11/11/1911/10/2024 UR DRUG SCREE N note SEE NOTE Order ing Provi loc: ARAMIS CHAVARRIA Not Available [address] , [place], [address], 11/10/2024 17:46:17 11/11/19 25 11/10/2024 UR DRUG SCREE N ur cocaine qual NEGATI VE 150NG /mL det limit= Not Available [address] , [place], [address], 11/10/2024 17:46:17 11/11/19 25 11/10/2024 UR DRUG SCREE N ur cannabinoid( THC) qual NEGATI VE 50NG/ mL det limit= Not Available [address] [place], [place], [address], 11/10/2024 17:46:17 11/11/19 25 11/10/2024 UR DRUG SCREE N ur amphetamine qual NEGATI VE 500NG /mL det limit= Not Available [address] [place] Som[place], [place], [address], 11/10/2024 17:46:17 11/11/19 25 11/10/2024 UR DRUG SCREE N ur barbiturate qual NEGATI VE 200NG /mL det limit= Not Available [address] [place], [address], 11/10/2024 17:46:17 11/11/19 25 11/10/2024 UR DRUG SCREE N ur benzodiazepi ne qual POSITI VE 200NG /mL det limit= abnormal Not Available [address] , [place], [address], 11/10/2024 17:46:17 11/11/19 25 11/10/2024 UR DRUG SCREE N ur opiates qual NEGATI VE 300NG /mL det limit= Not Available [address] [place] Sommer, [place], [address], 11/10/2024 17:46:17 11/11/19 25 11/10/2024 UR DRUG SCREE N ur phencyclidin e (pcp) qual NEGATI VE 25NG/ mL det limit= Not Available [address] , [place], [address], 11/10/2024 17:46:17 11/11/19 25 11/10/2024 UR DRUG SCREE N ur tricylic group qual NEGATI VE 1000N G/m det limit= Not Available [address] , [place], [address], 11/10/2024 17:46:17 11/11/19 25 11/10/2024 UR DRUG SCREE N methadone urine NEGATI VE 300NG /mL det limit= Not Available [address] [place]arly[place] Sommer, [place], [address], 11/10/2024 17:46:17 11/11/19 25 11/10/2024 UR DRUG SCREE N ur MDMA (ecstacy) ql NEGATI VE 500NG /mL det limit= Not Available [address] [place]arly[place] Sommer, [place], [address], 11/10/2024 17:46:17 11/11/19 25 11/10/2024 UR DRUG SCREE N ur oxycodone ql NEGATI VE 100NG /mL det limit= Not Available [address] [place]arly[place] Sommer, [place], [address], 11/10/2024 17:46:17 11/11/19 25 11/10/2024 UR DRUG SCREE N ur buprenorphin e qual NEGATI VE 10NG/ mL det limit= Not Available [address] , [place], [address], 11/10/2024 17:46:17 11/11/19 25 11/10/2024 UR DRUG SCREE N performing lab SEE NOTE ML - [facility] [address] [facility] [id number] Not Available [address] [place], [address], 11/10/2024 17:46:17 11/11/19 25 11/10/2024 BENZO DIAZE PINES GC/MS CONF note See Note Order ing Provi loc: ARAMIS KWOK LAND Not Available [address] , [place], [address], 11/16/2024 09:38:28 11/11/19 25 11/10/2024 BENZO DIAZE PINES GC/MS CONF benzodiazepi jayson GC/MS qual Positi ve () abnormal Not Available [address] [place], [address], 11/16/2024 09:38:28 11/11/19 25 11/10/2024 BENZO DIAZE PINES GC/MS CONF nordiazapam GC/MS qual Positi ve () abnormal Not Available [address] [place], [address], 11/16/2024 09:38:28 11/11/19 25 11/10/2024 BENZO DIAZE PINES GC/MS CONF nordiazapam GC/MS conf 329 NG/mL cutoff =150 Not Available [address] [place], [address], 11/16/2024 09:38:28 11/11/19 25 11/10/2024 BENZO DIAZE PINES GC/MS CONF oxazapam GC/MS qual Positi ve () abnormal Not Available [address] [place], [address], 11/16/2024 09:38:28 11/11/19 25 11/10/2024 BENZO DIAZE PINES GC/MS CONF oxazapam GC/MS conf 466 NG/mL cutoff =150 Not Available [address] [place], [address], 11/16/2024 09:38:28 11/11/19 25 11/10/2024 BENZO DIAZE PINES GC/MS CONF oh-alprazola m GC/MS qual Negati ve cutoff =150 Perfo rmed At: UI, [facility] [address] [place], [address] Rakesh Romero , PhD, Phone : [phone] Not Available [address] [place], [address], 11/16/2024 09:38:28 11/11/19 25 11/10/2024 BENZO DIAZE PINES GC/MS CONF performing lab see note LC2 - [facility] RP CLIEN T# [id number] [place] [address] Not Available [address] [place], [address], 11/16/2024 09:38:28 11/27/19 25 11/24/2024 MRI, thora cic spine , w/o contr ast No observ ation record ed. [facility] [address], [place], [address], 11/27/2024 15:43:19 11/27/19 25 11/24/2024 MRI, lumba r spine , w/o contr ast No observ ation record ed. [facility] [address], [place], [address], 11/27/2024 15:43:20 Result Notes None recorded. Procedures Surgical History None recorded. Imaging Results Imaging Date Name Status LastModified by Organiz ation Details LastModified Time 11/24/2024 MRI, thoracic spine, w/o contrast completed [facility] [address], [place], [address], 11/27/2024 15:43:19 11/24/2024 MRI, lumbar spine, w/o contrast completed [facility] [address], [place], [address], 11/27/2024 15:43:20 Procedure Notes None recorded. Medical Equipment None Reported. Allergies Allergen ID Allergen Name Allergen Category Reaction Reaction Severity Criticality Documentation Date Start Date Code Code System Note Provider Name and Address Organization Details Recorded Time 538337 Product containin g glucocort icoid (product) medicatio n other Not available low 11/10/2024 43575 6006 SNOMED [facility] & [place] 15:15:19 Medications Name Sig Start Date Stop [...] t Available diazepam 5 mg tablet TAKE 1 TABLET BY MOUTH THREE TIMES A DAY NEEDED FOR ANXIETY active Not Available Not Available No t [...] 16 /min 128 mm[Hg] 76 mm[Hg] Loren [facility] & [place] 15:14:18 Social History None recorded. Functional Status None recorded. Mental Status None recorded. Family History Nothing Reported. Medical History No medical history recorded. Past Encounters Encounter ID Performer Location Encounter Start Date Encounter Closed Date Diagnosis/Indication Diagnosis SNOMED-CT Code Diagnosis ICD10 Code Diagnosis Note [id number] SANDRA SHAFFER [facility] [address] [address] 11/10/2024 14:26:06 11/10/2024 16:33:54 Peripheral neuropathic pain 950631297 M79.2 Generalize d anxiety disorder 18147714 F41.1 Lumbar radiculopathy 128 378537 M54.16 Chronic th oracic back pain 6098406168 46241 M54.6 G89.29 Health Concerns Section Related Observation LastModified by Organization Detai ls LastModified Time None Recorded Concern Status LastModified by Organization Details LastModified Time None Recorded Advance Directives Directive None Recorded Payers Insurance Date Sequence Insurance Name Policy Number Policy Lucero Covered Member ID Lucero Member ID Guarantor Name 11/10/2024 1 [facility] (MEDICARE REPLACEMENT/A DVANTAGE - HMO) Elbert Belcher [id number] Notes Date Note Type Note Provider Name [...] he had been. He recently saw a reference investigator and says he has a hole in [...] also has sharp electric shocks that will ramírze through his legs causing him to jerk due to the pain. 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 He continues to have mid and low back pain and would orlin to get his MRI scheduled elizabeth at [facility]. Pain level w/rest : 610Pain level w/activity: 05/01Feeling down depressed or hopeless: Down at timesAre you having little interest or pleasure in doing things: NoHave you had any falls with injury in the past year: NoDo you use any illicit or recreation drugs: NoDo you or have you ever smoked tobacco: Yes - currentWhat is your level of alcohol consumption: None MAT PAL, SANDRA [address] [facility] [place] , [place], [address], [place] - [facility] - [place] & [place] 11/10/2024 20:34:58
--- OUTSIDE RECORDS SUMMARY | 2024-12-04 09:21 | XMS_ITS | Continuity of Care Document ---
Author Organization [place] - [place] - [place] [facility] Address [address] [place] [address] Assessment No assessment recorded. Plan of Treatment Reminders Order Date Submit Date Provider Last Modified By Organization Details Last Modified Time Details Appointments Establish ed Visit 15 min 2024 09:00A M MAT PAL NP Not available Not available Not available Lab drug screen, urine - can be urine or blood 2024 025 [facility] (Registration ), [address] [place] [address] [place], [address], 11/18/2024 10:56:39 drug screen, urine 2024 025 [facility] (Registration ), [address] [place] [address] [place], [address], 11/10/2024 17:46:17 Referral None recorded. Procedures None recorded. Surgeries None recorded. Imaging MRI, lumbar spine, w/o contrast 2024 025 [facility] Scheduling, [address] [place], [address], 11/26/2024 08:05:45 MRI, thoracic spine, w/o contrast 2024 025 [facility] Scheduling, [address] [place], [address], 11/26/2024 08:04:25 Medication Orders Valium 5 mg tablet 2024 025 [facility], [address] , [place], [place], [id number], 11/11/2024 14:25:01 Patient TargetsNo targets recorded. Patient Instructions Encounter Date Encounter Id Patient Instructions Last Modified By Organization Details Last Modified Time 11/10/2024 [id number] Get MRI thoracic and lumbar spine. Pt has been doing home therapy exercises for the last 6 weeks for mid and low back pain with an exercise log. Patient will bring the log in for submission to insurance if needed [email or web address] Not available 11/10/2024 20:31:20 Reason for Referral None Reported. Results Created Date Observation Date Name Description Value Unit Range Abnormal Flag Note LastModifiedBy Organization Detail LastModifiedTime 11/27/1911/24/2024 MRI, thora cic spine , w/o contr ast No observ ation record ed. [facility] [address], [place], [address], 11/27/2024 15:43:19 11/27/19 25 11/24/2024 MRI, lumba r spine , w/o contr ast No observ ation record ed. [facility] [address], [place], [address], 11/27/2024 15:43:20 Result Notes None recorded. Medical Equipment None Reported. Allergies Allergen ID Allergen Name Allergen Category Reaction Reaction Severity Criticality Documentation Date Start Date Code Code System Note Provider Name and Address Organization Details Recorded Time 292947 Product containin g glucocort icoid (product) medicatio n other Not available low 11/10/2024 04515 6006 SNOMED [place] - [place] - [place] 15:15:19 Medications Name Sig Start Date Stop [...] 16 /min 128 mm[Hg] 76 mm[Hg] Loren [facility] [place] & [place] 5 15:14:18 Social History None recorded. Functional Status None recorded. Mental Status None recorded. Family History Nothing Reported. Medical History No medical history recorded. Past Encounters Encounter ID Performer Location Encounter Start Date Encounter Closed Date Diagnosis/Indication Diagnosis SNOMED-CT Code Diagnosis ICD10 Code Diagnosis Note [id number] SANDRA SHAFFER [facility] [address] [address] 11/10/2024 14:26:06 11/10/2024 16:33:54 Peripheral neuropathic pain 901786769 M79.2 Generalize d anxiety disorder 80146285 F41.1 Lumbar radiculopathy 128 427696 M54.16 Chronic th oracic back pain 2403071764 49807 M54.6 G89.29 Health Concerns Section Related Observation LastModified by Organization Detai ls LastModified Time None Recorded Concern Status LastModified by Organization Details LastModified Time None Recorded Payers Encounter Date Sequence Insurance Name Policy Number Policy Lucero Covered Member ID Lucero Member ID Guarantor Name 11/10/2024 1 [facility] (MEDICARE REPLACEMENT/A DVANTAGE - HMO) Elbert Belcher [id number] Notes Date Note Type Note Provider Name [...] he had been. He recently saw a strategic development manager and says he has a hole [...] to get his MRI scheduled elizabeth at [facility]. Pain level w/rest : 12/30Pain level w/activity: 05/01Feeling down depressed or hopeless: Down at timesAre you having little interest or pleasure in doing things: NoHave you had any falls with injury in the past year: NoDo you use any illicit or recreation drugs: NoDo you or have you ever smoked tobacco: Yes - currentWhat is your level of alcohol consumption: None MAT PAL, STEAM FLATTENER [address] , [place], [address], [facility] - [place] 11/10/2024 20:34:58
--- NOTE | 2024-12-04 09:23 | CA_ITS ---
APPROVED REPORT EXAM: Comprehensive 2D, Doppler, and color-flow Echocardiogram Building Architectural Designer: HARRIS Blunt, RVS Ht: 6 ft 0 in Wt: 181lbs BSA: 2.04 BP: 130/86 mmHg Indications: CAD, PFO, CP, Smoker, Schizophrenia Echo Enhancing Agent Indication: Rule Out Septal Defect Agent(s) / Amount(s) Used: Agitated Saline 20 cc Comments: Positive right to left shunt, known ASD/PFO 2D Dimensions Left Atrium 2.87 cm LA Volume 37.80 mL LA Volume Index 18.10 mL/m2 (M/F) 16-34 M-Mode Dimensions RVDd 2.09 cm (0.9-2.6) LA Diam 2.93 cm (1.9-4.0) LVDd 4.78 cm (3.5-5.7) LVDs 3.34 cm (3.5-5.7) IVSd 1.15 cm (0.6-1.1) PWd 0.87 cm (0.6-1.1) EF (Teich) 57.40% EPSs 1.16 cm FS 30.10% EDV (Teich) 106.50 mL TAPSE 2.15 (<1.7) ESV (Teich) 45.40 mL LV Diastology E Decel Time 197 (160-240 msec) E/A Ratio 0.76 MED A' 7.30 cm/s LAT A' 9.80 cm/s Aortic Valve RON Index 1.49 cm2/m2 AoV Peak Gomez. 135.0 (50-130 cm/s) AO Peak GR. 7.30 mmHg AO Mean GR. 3.60 (<5 mmHg) AO VTI 20.9 (18-25 cm) RON (VTI) 3.11 (2.5-4.5 cm2) Mitral Valve MV A Velocity 68.0 (40-130 cm/s) E/A Ratio 0.76 Left Ventricle The left ventricle is normal size. The left ventricular systolic function is normal. The left ventricular ejection fraction is within the normal range. There is normal left ventricular wall thickness. There is normal LV segmental wall motion. Transmitral Doppler flow pattern suggests impaired LV relaxation. LVEF is 55%. Right Ventricle The right ventricle is normal size. The right ventricular systolic function is normal. Atria The left atrium size is normal. The right atrium size is normal. Agitated saline administration demonstrates presence of interatrial shunt. Aortic Valve The aortic valve opens well. Trace aortic regurgitation. There is no aortic valvular stenosis. Mitral Valve The mitral valve is normal in structure. No evidence of mitral valve stenosis. Trace mitral regurgitation. Tricuspid Valve Tricuspid valve is grossly normal in structure and function. Trace tricuspid regurgitation. There is insufficient TR jet to estimate RVSP. Pulmonic Valve The pulmonary valve is normal in structure. Trace regurgitation. Great Vessels The aortic root is normal in size. IVC is normal in size and collapses >50% with inspiration. Pericardium There is no pericardial effusion. Other Information Study Quality: Fair Conclusion Normal biventricular systolic function. No significant valvular stenosis or regurgitation. Agitated saline administration demonstrates presence of interatrial shunt. Electronically signed by : Kenya Byrd MD 12/14/2024 21:07:01
== END 2024-12-04 23:59 | disposition home or self-care (01) ==
LOC: RT 09:20
PROVIDERS: PCP Family Medicine; Visit Provider Family Medicine
DX: Q21.12 Patent foramen ovale (principal); I25.10 Atherosclerotic heart disease of native coronary artery without angina pectoris; I10 Essential (primary) hypertension; R94.31 Abnormal electrocardiogram [ECG] [EKG]; F17.200 Nicotine dependence, unspecified, uncomplicated; F20.9 Schizophrenia, unspecified
CPT/HCPCS: 93306

== ENCOUNTER 2024-12-12 06:31 | Day surgery (SDC) | payer MEDICARE, SELFPAY ==
--- NOTE | 2024-12-02 11:33 | SUR.PREOP ---
Pt no-show for cardiology clearance appt on 12/01/24. Attepmtped to call pt., left VM. GEORGE in Dr. Preston's office notified, will attempt to reach pt.
[2024-12-12] VITALS (8 sets, daily range): BP systolic 117–148; BP diastolic 61–86; PULSE 98–104; RESP 14–18; TEMP 36.1–36.6; O2SAT 96–99; BMI 23.4
[2024-12-12] MEDS: 0.9 % SODIUM CHLORIDE 1000ML 1,000 ML 25 ML IV (07:13)
[2024-12-12] MEDS: CEFAZOLIN SODIUM 2 GM in 0.9 % SODIUM CHLORIDE 100 ML IV (07:19)
[2024-12-12] MEDS: LIDOCAINE 1% 20ML MDV 20 ML (07:30)
--- NOTE | 2024-12-12 08:00 | P.PNANES_ITS ---
[facility] Disclaimer: The information contained in this section may have been updated after the patient was seen, as this information can be updated by other users. Medical History History of peripheral neuropathy History of arthritis Coronary artery disease Abnormal findings on diagnostic imaging of heart and coronary circulation Interatrial cardiac shunt Chest pain Schizophrenia Chronic pain Insomnia Depression Anxiety Alcohol use disorder Surgical History History of hernia repair History of appendectomy Family History Family/Other Heart attack Other Family history of aneurysm Family history of diabetes mellitus Social History (Updated 12/12/24 @ 06:59 by Emma Oquendo RN) Smoking Status: Current every day smoker alcohol intake: never substance use type: denies use current occupational status: disabled Travel in the last 8 weeks?: None housing: house number of children: 4 Have you lived/traveled outside US in past 30 days?: No Contact w/someone who lives/traveled outside US past 30 days?: No Exposure to someone with infectious disease in past 14 days?: No Do you have a fever (greater than 100.4 F or 38 C)?: No Have you tested positive for COVID-19?: No Exposed to someone with COVID-19 in past 14 days?: No Do you have a sore throat?: No Do you have a cough?: No Do you have any weakness?: No Are you experiencing any nausea/vomitting?: No Do you have any diarrhea?: No Are you experiencing any unusual bleeding?: No Do you have any muscle aches/pain?: No Do you have any abdominal pain?: No Are you experiencing loss of taste or smell?: No [facility] Anesthesia Checklist Patient Identification Patient Identification: Verbal (Name & ) Structural Data Admitted From: Home Planned Operative Procedure/s: excision neoplasm l arm scalp Consent for Planned Operative Procedure(s) Verified: Yes NPO Status Verified Time NPO: 00:00 Additional verifications Anesthesia Reactions: No Hx Blood Transfusions: No Blood Transfusion Reaction: No Airway Assessment Mallampati Score:: Class II C-Spine Mobility Assessed: Yes TMJ Mobility Assessed: Yes Dentition: Edentulous Neurological Assessment Level of Consciousness: Awake, Alert and Appropriate Anesthesia Plan Anesthesia Risk discussed: Yes Anesthesia Plan: Verified ASA Class: III Anesthesia Type: General
--- NOTE | 2024-12-12 08:14 | EXP.OP.NOTE ---
Date of procedure: 12/12/24 Pre-op Diagnosis:: Left upper extremity soft tissue mass (2.5 cm) Mid anterior scalp cyst (0.75 cm) Post-op Diagnosis:: Same Procedure performed:: Excision of 2.5 cm left upper extremity soft tissue mass Excision of 0.75 cm mid anterior scalp cyst Surgeon:: Gagan Preston MD IRRIGATION EQUIPMENT REMOVER:: Adam Mchugh Anesthesia: local and LMA Estimated blood loss (mL): 15 Operative findings:: Both lesions excised in toto Operative note:: After informed consent was obtained the patient was taken to the operating room and placed in the supine position. General anesthesia with laryngeal mask airway was achieved. His mid left upper extremity was prepped and draped in a sterile fashion. The mid anterior scalp was also prepped and draped in a sterile fashion. After infiltration with local anesthetic an incision was made overlying the palpable left upper extremity lesion. A combination of blunt dissection, sharp dissection, and electrocautery was utilized to transect around the subcutaneous soft tissue lesion. The lesion was excised in toto and passed off for pathologic evaluation. Electrocautery was utilized to achieve hemostasis. Skin was reapproximated with interrupted 4-0 nylon in a mattress fashion. Dressings were applied. Attention was then turned to the scalp lesion. After infiltration local anesthetic an elliptical incision was made over the palpable lesion. A combination of sharp dissection and electrocautery was utilized to transect around the cystic lesion. The lesion was excised in toto and passed off for pathologic evaluation. Electrocautery was utilized to achieve hemostasis. Skin was reapproximated with interrupted 6-0 nylon. Dressings were applied and the patient was transferred to recovery in stable condition after removal of his laryngeal mask airway. Condition: stable Disposition: PACU Specimens:: 2.5 cm left upper extremity soft tissue mass 0.75 cm mid anterior scalp cyst Complications:: No immediate
--- NOTE | 2024-12-12 08:24 | P.PNANES_ITS ---
[facility] Anesthesia Record Part I Anesthesia Record I Intake, IV Amount: 1,000 Hydration: Adequate Estimated blood loss (mL): 0 Urine output (mL): 0 Blood Pressure: 135/76 SaO2: 96 Pulse Rate: 100 Airway Patency: Patent Respiratory Rate: 14 Temperature: 97.8 F Patient is:: Awake and Stable Stable to PACU at:: 08:20
--- NOTE | 2024-12-16 07:42 | EXP.ANES.II ---
[facility] Anesthesia Record Part II Anesthesia Record Part II Discharge Time: 08:50 Destination: [facility] PACU nurse assessment reviewed?: Yes Patient Condition:: Good Anesthesia Complications:: None Swallowing reflex intact?: Yes Airway Patency: Patent Cyanosis?: No Blood Pressure: 148/78 SaO2: 98 Respiratory Rate: 16 Pulse Rate: 103 Temperature: 97 F Mental Status: Alert & Oriented Pain level:: 0 Nausea and/or vomitting:: None Intake, IV Amount: 1,500 Hydration: Adequate
[2024-12-16 07:43] VITALS: BP 148/78; PULSE 103; RESP 16; TEMP 36.1; O2SAT 98
== END 2024-12-12 09:06 | disposition home or self-care (01) ==
PROVIDERS: PCP Family Medicine; Visit Provider Surgery
DX: L72.0 Epidermal cyst (principal); M79.89 Other specified soft tissue disorders; D23.4 Other benign neoplasm of skin of scalp and neck; I10 Essential (primary) hypertension; E78.5 Hyperlipidemia, unspecified; Z88.8 Allergy status to other drugs, medicaments and biological substances; Z79.899 Other long term (current) drug therapy
CPT/HCPCS: 11421; 88304; 88305; 96374; J0690; J1596; J2003; J2250; J2405; J2704; J3010; J7030

== ENCOUNTER 2025-04-02 08:43 | Emergency (ER) | payer MEDICARE, SELFPAY ==
[2025-04-02] VITALS (10 sets, daily range): BP systolic 127–157; BP diastolic 85–117; PULSE 80–95; RESP 16–24; TEMP 36.7–36.8; O2SAT 97–99; BMI 23.4
--- NOTE | 2025-04-02 08:56 | ECG_ITS ---
APPROVED REPORT Exam: Resting ECG HR:88 bpm ECG Measurements Heart Rate 88 AXES OK 156 P 59 QRSd 89 QRS 79 QT 341 T 29 QTc 387 Conclusion SINUS RHYTHM NORMAL ECG Electronically signed by : JOHANNA SHIRLEY, 04/03/2025 02:53:00
--- NOTE | 2025-04-02 09:16 | HMH.EDGENADL ---
Discharge Plan Disposition Patient Disposition: Home, Self-Care Prescriptions Prescriptions: No Action cyclobenzaprine 10 mg tablet 10 mg PO TID meloxicam 15 mg tablet 15 mg PO DAILY gabapentin 400 mg capsule 400 mg PO BID atorvastatin [Lipitor] 40 mg tablet 40 mg PO DAILY Qty: 90 3RF lisinopril 40 mg tablet 40 mg PO DAILY Qty: 90 3RF quetiapine [Seroquel] 100 mg tablet 100 mg PO DAILY Qty: 30 2RF diazepam [Valium] 5 mg tablet 5 mg PO QID PRN (Reason: anxiety) Qty: 120 0RF Referrals Follow up/Referrals: Guido Warren MD [Primary Care Provider, Family Practice] - See instructions Activity Restrictions/Add. Instructions Additional Instructions/Restrictions: Follow-up with your primary care provider soon as possible to help discuss decreasing her stroke risk. Actionable things you can do right now is stopping smoking. Return to the emergency department for any new or worsening symptoms. Clinical Impressions Clinical Impression: Transient ischemic attack Instructions Patient Instructions: DI for Syncope in Adults (Fainting), DI for Syncope in Children (Fainting) Print Language Print Language: Telugu Discharge ED Provider: Sonya Espana General Adult HPI General Chief complaint: Syncope Stated complaint: syncope, feels off Time Seen by Provider: 04/02/25 09:16 Mode of Arrival: Ambulatory Source of Information: Patient and Spouse Description of Symptoms (Recalled from ER Triage Doc. by RN): Patient presents to ED for syncopal episode this morning. Patient states he was sitting in the recliner in his living room when he becamew dizzy and fell over out of the chair. Reports he did lose consciousness briefly. Has hx of the same, last episode a year ago. History of Present Illness HPI narrative: Patient is a 49-year-old with past medical history significant for hypertension hyperlipidemia schizoaffective disorder ASD status postrepair, heart attack, 1 pack/day smoker presents to the emergency department with episode of left sided weakness and numbness. Last known well around 645 this morning. Patient was sitting in a chair while at the bus [place] with his child when he all of a sudden felt very dizzy like the room was spinning. He also said that yesterday evening he had a headache. After this and/sensation that the room was spinning he lowered himself to the ground but noticed that his left arm and left leg were very weak he could not get himself up and had to crawl then he tried to text a family member but the text did not make sense and he could not use his left arm because of a visual disturbance that he could not see the left side. Patient was awake during the entire episode denied any chest pain or shortness of breath or palpitations prior to the episode. Patient was able to take his home medications including atorvastatin lisinopril cyclobenzaprine that helped his symptoms improved. Symptoms resolved after approximately 1 hour. Patient denies any symptoms at this time just feeling off denies daily alcohol use or history of IV drug use. Related Data Home Medications ?Medication ?Instructions ?Recorded ?Confirmed cyclobenzaprine 10 mg tablet 10 mg PO TID 12/11/23 12/24/24 meloxicam 15 mg tablet 15 mg PO DAILY 12/11/23 12/24/24 gabapentin 400 mg capsule 400 mg PO BID 03/11/24 12/24/24 Previous Rx's ?Medication ?Instructions ?Recorded atorvastatin 40 mg tablet (Lipitor) 40 mg PO DAILY #90 tabs 11/10/24 lisinopril 40 mg tablet 40 mg PO DAILY #90 tabs 11/10/24 quetiapine 100 mg tablet (Seroquel) 100 mg PO DAILY #30 tabs 12/23/24 diazepam 5 mg tablet (Valium) 5 mg PO QID PRN anxiety #120 tabs 01/12/25 Allergies Allergy/AdvReac Type Severity Reaction Status Date / Time prednisone AdvReac Intermediate hiccups Verified 12/24/24 10:37 [facility] Disclaimer: The information contained in this section may have been updated after the patient was seen, as this information can be updated by other users. Medical History History of peripheral neuropathy History of arthritis Coronary artery disease Abnormal findings on diagnostic imaging of heart and coronary circulation Interatrial cardiac shunt Chest pain Schizophrenia Chronic pain Insomnia Depression Anxiety Alcohol use disorder Surgical History History of excision of lesion History of hernia repair History of appendectomy Family History Family/Other Heart attack Other Family history of aneurysm Family history of diabetes mellitus Social History Smoking Status: Current every day smoker alcohol intake: never substance use type: denies use current occupational status: disabled Travel in the last 8 weeks?: None housing: house number of children: 4 Have you lived/traveled outside [place] in past 30 days?: No Contact w/someone who lives/traveled outside US past 30 days?: No Exposure to someone with infectious disease in past 14 days?: No Do you have a fever (greater than 100.4 F or 38 C)?: No Have you tested positive for COVID-19?: No Exposed to someone with COVID-19 in past 14 days?: No Do you have a sore throat?: No Do you have a cough?: No Do you have any weakness?: No Do you have any diarrhea?: No Are you experiencing any unusual bleeding?: No Do you have any muscle aches/pain?: No Do you have any abdominal pain?: No Are you experiencing loss of taste or smell?: No Other Medical History Have you received the Pneumonia Vaccine: No ROS Obtained: Yes All systems reviewed & no additional complaints except as documented Physical Exam General General appearance: alert and in no apparent distress Head Head exam: atraumatic and normocephalic Eye Eye exam: Present normal appearance and PERRL; Absent EOMI ENT ENT exam: Present normal exam Neck Neck exam: Present normal inspection Respiratory Respiratory exam: Present wheezes; Absent respiratory distress Cardiovascular Cardiovascular exam: Present regular rate and normal rhythm Abdominal Exam Abdominal exam: Present soft; Absent distention or tenderness Extremities Exam Extremities exam: Present normal inspection; Absent tenderness or edema Neurological Exam Neurological exam: Present alert, oriented X3, CN II-XII intact, normal gait and other (No cerebellar deficits normal [id number] and finger-nose, normal speech); Absent motor sensory deficit Medical Decision Making Medical Records Screening: Per USPSTF and CDC recommendations, given the prevalence of disease in our region, it is our hospital?s policy to screen for HIV and viral Hepatitis for all patients aged 18 and over and those with ongoing risk factors. Jesús Inquiry Pt receiving controlled substance: No Vital Signs: 04/02/25 08:55 04/02/25 08:55 04/02/25 09:00 Temperature 98.0 F 98.0 F Temperature Source Oral Pulse Rate 80 81 Pulse Rate [Right] 90 Respiratory Rate 16 16 22 Blood Pressure 149/87 H 140/94 H Blood Pressure [Orthostatic Lying Right Arm] Blood Pressure [Orthostatic Sitting Right Arm] Blood Pressure [Orthostatic Standing Right Arm] Blood Pressure [Right Arm] 149/87 H Blood Pressure Mean [Right Arm] 107 02 Sat by Pulse Oximetry 98 98 98 04/02/25 09:30 04/02/25 09:34 04/02/25 09:54 Temperature Temperature Source Pulse Rate 86 87 Pulse Rate [Right] Respiratory Rate 16 Blood Pressure 157/117 H 138/88 Blood Pressure [Orthostatic Lying Right Arm] 138/88 Blood Pressure [Orthostatic Sitting Right Arm] 138/97 H Blood Pressure [Orthostatic Standing Right Arm] 142/96 H Blood Pressure [Right Arm] Blood Pressure Mean [Right Arm] 02 Sat by Pulse Oximetry 97 97 04/02/25 09:55 04/02/25 10:00 04/02/25 11:00 Temperature Temperature Source Pulse Rate 89 83 95 H Pulse Rate [Right] Respiratory Rate 22 22 19 Blood Pressure 142/96 H 127/85 151/99 H Blood Pressure [Orthostatic Lying Right Arm] Blood Pressure [Orthostatic Sitting Right Arm] Blood Pressure [Orthostatic Standing Right Arm] Blood Pressure [Right Arm] Blood Pressure Mean [Right Arm] 02 Sat by Pulse Oximetry 98 97 98 04/02/25 11:30 04/02/25 11:51 Temperature 98.3 F Temperature Source Pulse Rate 87 83 Pulse Rate [Right] Respiratory Rate 24 16 Blood Pressure 133/95 H 133/95 H Blood Pressure [Orthostatic Lying Right Arm] Blood Pressure [Orthostatic Sitting Right Arm] Blood Pressure [Orthostatic Standing Right Arm] Blood Pressure [Right Arm] Blood Pressure Mean [Right Arm] 02 Sat by Pulse Oximetry 99 Lab Data Lab Results 04/02/25 09:05: WBC 6.1, RBC 5.04, Hgb 15.8, Hct 45.5, MCV 90.3, MCH 31.3 H, MCHC 34.7, RDW 13.0, Plt Count 242, MPV 10.4, Neut % (Auto) 61.8, Lymph % (Auto) 22.4, Preston % (Auto) 11.0 H, Eos % (Auto) 4.0, Baso % (Auto) 0.5, Neut # (Auto) 3.8, Lymph # (Auto) 1.4, Preston # (Auto) 0.7, Eos # (Auto) 0.2, Baso # (Auto) 0.0, PT 10.6, INR 0.95, Sodium 139, Potassium 3.8, Chloride 107, Carbon Dioxide 26, Anion Gap 9.8, BUN 8 L, Creatinine 0.70, Estimated Creat Clear 140, Estimated GFR 119, Est GFR ( Amer) 144, Glucose 110 H, Calcium 9.2, Total Bilirubin 0.4, AST 36, ALT 40, Alkaline Phosphatase 132 H, Troponin I < 0.01, Total Protein 7.4, Albumin 4.4, Globulin 3.0, Albumin/Globulin Ratio 1.5 04/02/25 09:05 04/02/25 09:05 Orders (Tests/Meds): ED MEDICATIONS Discontinued Medications Generic Name Dose Route Start Last Admin Trade Name Freq PRN Reason Stop Dose Admin Lactated Ringer's 1,000 mls @ 999 mls/hr 04/02/25 09:34 04/02/25 11:14 Lactated Ringer's 1000 Ml Bag IV 04/02/25 10:34 Infused .Q1H1M ONE Infusion Iopamidol 80 ml 04/02/25 10:23 04/02/25 10:25 Iopamidol-370 (76%);100ml Bottle IV 04/02/25 10:24 80 ml ONCE ONE Administration Sodium Chloride 10 ml 04/02/25 10:23 04/02/25 10:24 Sodium Chloride 0.9% 10ml Syr (Rad Only) IV 04/02/25 10:24 10 ml ONCE ONE Administration Sodium Chloride 50 ml 04/02/25 10:23 04/02/25 10:24 0.9 % Sodium Chloride 50 Ml Vial IV 04/02/25 10:24 50 ml ONCE ONE Administration ORDERS Category Date Time Status CT angio head Stat Cat Scan 04/02/25 09:[address] angio neck Stat Cat Scan 04/02/25 09:[address] head/brain wo con Stat Cat Scan 04/02/25 09:33 Completed POCUS Point of Care (ER Only) Stat Exams 04/02/25 09:18 Completed Complete Blood Count Auto Diff Stat Lab 04/02/25 09:05 Completed Comprehensive Metabolic Panel Stat Lab 04/02/25 09:05 Completed Prothrombin Time INR Stat Lab 04/02/25 09:05 Completed Troponin I Stat Lab 04/02/25 09:05 Completed Medical Decision Narrative: In summary, this 49-year-old male presents to the emergency department today with left-sided weakness and dizziness. On initial evaluation patient is hypertensive normal heart rate saturating appropriately on room air. Differential diagnosis includes but is not limited to TIA, ischemic or hemorrhagic stroke, peripheral vertigo including labyrinthitis BPPV, complex migraine arrhythmia, panic attack, orthostatic hypotension. Based on these concerns, I ordered CBC CMP troponin EKG CT head CTA head and neck. Initial NIH of 0 ECG personally interpreted demonstrates normal sinus rhythm no ST elevation ST depression or T wave inversions concerning for ischemia Patient received lactated Ringer's for treatment. Orthostatics negative Labs personally reviewed demonstrate no leukocytosis or significant anemia CT imaging personally interpreted demonstrate no large vessel occlusion no intracranial hemorrhage. ABCD 2 score 5. Patient is on 40 mg of atorvastatin and baby aspirin daily but continues to smoke. I counseled patient that patient's greatest risk factor for stroke is currently smoking. Recommended following up with his PCP to talk about stroke prevention and strict return precautions if he develops symptoms again. On reassessment patient continues to be asymptomatic and agreeable to discharge with outpatient follow-up with PCP Critical Care Critical Care Time Critical Care Time: No
--- NOTE | 2025-04-02 09:33 | CT_ITS ---
FINAL REPORT TECHNIQUE: Thin section axial images were obtained from skull base to vertex without contrast. Coronal reconstruction images were obtained from the axial data. Exam was performed using dose reduction techniques such as automated exposure control, adjustment of the mA and kV according to patient size, and use of iterative reconstruction technique. CLINICAL HISTORY: left weakness and tingling, supsect TIA FINDINGS: There is no mass effect or midline shift. There is no hydrocephalus. There is no intracranial hemorrhage. The posterior fossa is without acute abnormality. The basilar cisterns are preserved. The soft tissues are without acute abnormality. No acute osseous abnormality is identified. IMPRESSION: No acute intracranial abnormality. Reviewed, Interpreted and Dictated by Chiquis Aranda MD Transcribed by Shilpa Beltran Authenticated and [facility]
--- NOTE | 2025-04-02 09:33 | CT_ITS ---
FINAL REPORT TECHNIQUE: Thin section axial images were obtained through the head after contrast administration per CT angiogram protocol. Multiplanar reconstruction images were obtained from the axial data. Exam was performed using dose reduction techniques such as automated exposure control, adjustment of the mA and kV according to patient's size, and use of iterative reconstruction technique. CLINICAL HISTORY: left weakness and tingling, supsect TIA FINDINGS: CTA HEAD The intracerebral portions of the carotid arteries are patent. The anterior and posterior circulation are patent. The basilar artery is patent. The vertebral arteries are patent. There is no significant stenosis, aneurysm, or AVM. IMPRESSION: No evidence of stenosis or major branch occlusion. Reviewed, Interpreted and Dictated by Chiquis Aranda MD Transcribed by Shilpa Beltran Authenticated and [facility]
--- NOTE | 2025-04-02 09:33 | CT_ITS ---
FINAL REPORT TECHNIQUE: Thin section axial images were obtained from the aortic arch to the skull base after intravenous contrast injection per CTA protocol. Multiplanar reconstruction images were obtained. Exam was performed using dose reduction techniques and the ALARA principle. CLINICAL HISTORY: left weakness and tingling, supsect TIA FINDINGS: CTA NECK: Aortic arch: There is a normal three-vessel configuration to the aortic arch. There is no significant stenosis of the great vessels at their origins. Right carotid artery: The right common carotid artery is patent without stenosis. The cervical portions of the right internal carotid artery are patent without stenosis. 0% stenosis per NASCET criteria. Left carotid artery: The left common carotid artery is patent without stenosis. The cervical portions of the left internal carotid artery are patent without stenosis. 0% stenosis per NASCET criteria. Vertebral arteries: The vertebral arteries are patent. No significant stenosis. Other soft tissues: There is multiple bilateral cervical lymphadenopathy abnormal in number more than size, lymphoproliferative process is not excluded. IMPRESSION: No evidence of carotid stenosis. Patent vertebral arteries. Cervical lymphadenopathy which is nonspecific. Reviewed, Interpreted and Dictated by Chiquis Aranda MD Transcribed by Shilpa Beltran Authenticated and [facility]
[2025-04-02 09:41] LABS: Hematocrit 45.5 % (42.0-52.0); Hemoglobin 15.8 g/dL (14.1-18.0); Immature Granulocytes % 0.3 %; Mean Corpuscular HGB Conc 34.7 g/dL (31.8-35.4); Mean Corpuscular Hemoglobin 31.3 pg (27.0-31.2); Mean Corpuscular Volume 90.3 fl (80-94); Nucleated Red Blood Cells % 0 %; Platelet Count 242 K/mm3 (142-424); Red Blood Count 5.04 M/mm3 (4.60-6.20); Red Cell Distribution Width-SD 42.6 fL; White Blood Count 6.1 K/mm3 (4.8-10.8)
[2025-04-02 09:47] LABS: Alanine Aminotransferase 40 U/L (12-78); Albumin Level 4.4 g/dl (3.5-5.0); Albumin/Globulin Ratio 1.5 (1.1-1.8); Alkaline Phosphatase 132 U/L (38-126); Anion Gap 9.8 mEq/L (5-15); Aspartate Amino Transferase 36 U/L (17-59); Bilirubin,Total 0.4 mg/dl (0.2-1.3); Blood Urea Nitrogen 8 mg/dl (9-20); Calcium 9.2 mg/dl (8.4-10.2); Carbon Dioxide 26 mmol/L (22.0-30.0); Chloride 107 mmol/L (98-107); Creatinine Clearance Estimated 140 mL/min (50-200); Creatinine,Serum 0.70 mg/dl (0.66-1.25); Estimated Glomerular Filt Rate 119 ml/min (>60); GFR (African American) 144 ML/MIN (>60); Globulin 3.0 g/dL (1.3-3.2); Glucose 110 mg/dl (74-100); INR 0.95 (0.9-1.1); Potassium 3.8 mmoL/L (3.5-5.1); Prothrombin Time 10.6 seconds (10.1-12.5); Sodium 139 mmol/L (136-145); Total Protein,Serum 7.4 g/dl (6.3-8.2)
[2025-04-02 10:01] LABS: Troponin I < 0.01 ng/ml (0.00-0.034)
[2025-04-02] MEDS: LACTATED RINGERS 1000ML 1,000 ML 999 ML IV (10:13)
[2025-04-02] MEDS: 0.9 % SODIUM CHLORIDE 50 ML VIAL IV (10:24)
[2025-04-02] MEDS: SODIUM CHLORIDE 0.9% 10ML SYR (RAD ONLY) 10 ML IV (10:24)
[2025-04-02] MEDS: IOPAMIDOL-370 (76%);100ML BOTTLE 80 ML IV (10:25)
== END 2025-04-02 11:56 | disposition home or self-care (01) ==
PROVIDERS: Emergency Provider Student in an Organized Health Care Education/Training Program; PCP Family Medicine
DX: G45.9 Transient cerebral ischemic attack, unspecified (principal); E78.5 Hyperlipidemia, unspecified; I10 Essential (primary) hypertension; I25.10 Atherosclerotic heart disease of native coronary artery without angina pectoris; F17.200 Nicotine dependence, unspecified, uncomplicated
CPT/HCPCS: 70450; 70496; 70498; 80053; 84484; 85025; 85610; 93005; 96365; 99285; J7120; Q9967

== ENCOUNTER 2025-04-23 16:05 | Emergency (ER) | payer MEDICARE, SELFPAY ==
[2025-04-23 16:09] VITALS: BP 161/107; PULSE 108; RESP 18; TEMP 36.8; O2SAT 100; BMI 24.0
--- NOTE | 2025-04-23 16:21 | [facility].EDGENADL ---
Discharge Plan Disposition Patient Disposition: Home, Self-Care Condition: Good Prescriptions Prescriptions: New sulfamethoxazole-trimethoprim [Bactrim DS] 800-160 mg tablet 2 tab PO BID 7 Days Qty: 28 0RF cephalexin 500 mg capsule 500 mg PO Q6H 7 Days Qty: 28 0RF No Action cyclobenzaprine 10 mg tablet 10 mg PO TID meloxicam 15 mg tablet 15 mg PO DAILY gabapentin 600 mg tablet 600 mg PO HS tramadol 50 mg tablet 100 mg PO TID gabapentin 100 mg capsule 100 mg PO BID Eliquis 5 mg tablet 5 mg PO BID Qty: 60 3RF atorvastatin [Lipitor] 40 mg tablet 40 mg PO DAILY Qty: 90 3RF aspirin 81 mg tablet,chewable 81 mg PO DAILY Qty: 100 3RF lisinopril 40 mg tablet 40 mg PO DAILY Qty: 90 3RF quetiapine [Seroquel] 100 mg tablet 100 mg PO DAILY Qty: 30 2RF diazepam [Valium] 5 mg tablet 5 mg PO QID PRN (Reason: anxiety) Qty: 120 0RF Referrals Follow up/Referrals: Guido Warren MD [Primary Care Provider, Family Practice] - See instructions Activity Restrictions/Add. Instructions Additional Instructions/Restrictions: Take the antibiotics as prescribed for 7 days. We will give you an outpatient form to come back on Sunday to get a formal ultrasound. However even if you have a blood clot in your leg you are on appropriate treatment with Eliquis. To the emergency department if your redness or swelling progresses up the foot and into the ankle if you develop fevers or inability to move your ankle. Clinical Impressions Clinical Impression: Cellulitis of foot Print Language Print Language: Hebrew Discharge ED Provider: Pamela Aleman Adult [facility] General Chief complaint: PAIN Stated complaint: swelling, redness right foot, sent by pcp Time Seen by Provider: 04/23/25 16:21 Mode of Arrival: Ambulatory Source of Information: Patient and Spouse Description of Symptoms (Recalled from ER Triage Doc. by RN): sara presents to ED with from his primary care doctors office for possible DVT in his right lower leg. patient stated the redness/swelling started 2-3 days ago. patient endorsed he had to cut his boot off yesterday the swelling was so bad. patient also stated he had a TIA 3 weeks ago and was started on eliquis 3 weeks ago. History of Present Illness HPI narrative: Patient is a 49-year-old male with a past medical history of recent TIA started on Eliquis 3 weeks ago who presents to the emergency department with right lower extremity redness and swelling of his foot. Patient states that his symptoms started 3 days ago. Patient states that he cut his boot off and he had a little bump on his right fifth toe. Patient states that he has now developed some swelling of the most distal part of his foot as well as some pain with ambulation when he steps down. Patient reports that his foot appears to be more swollen than the left. Patient denies any fevers. Patient states that he was bit by a bunch of small ticks that were removed very quickly a few weeks ago but denies any recent lacerations or other wounds to the foot. Patient is not a diabetic. Patient denies any IV drug use. Patient denies any other drug use. Patient denies any alcohol use. Related Data Home Medications ?Medication ?Instructions ?Recorded ?Confirmed cyclobenzaprine 10 mg tablet 10 mg PO TID 12/11/23 04/23/25 meloxicam 15 mg tablet 15 mg PO DAILY 12/11/23 04/23/25 gabapentin 100 mg capsule 100 mg PO BID 04/09/25 04/23/25 gabapentin 600 mg tablet 600 mg PO HS 04/09/25 04/23/25 tramadol 50 mg tablet 100 mg PO TID 04/09/25 04/23/25 Previous Rx's ?Medication ?Instructions ?Recorded lisinopril 40 mg tablet 40 mg PO DAILY #90 tabs 11/10/24 quetiapine 100 mg tablet (Seroquel) 100 mg PO DAILY #30 tabs 12/23/24 diazepam 5 mg tablet (Valium) 5 mg PO QID PRN anxiety #120 tabs 01/12/25 apixaban 5 mg tablet (Eliquis) 5 mg PO BID #60 tabs 04/09/25 aspirin 81 mg chewable tablet 81 mg PO DAILY #100 tabs 04/09/25 atorvastatin 40 mg tablet (Lipitor) 40 mg PO DAILY #90 tabs 04/09/25 cephalexin 500 mg capsule 500 mg PO Q6H 7 days #28 caps 04/23/25 sulfamethoxazole 800 2 tab PO BID 7 days #28 tabs 04/23/25 mg-trimethoprim 160 mg tablet (Bactrim DS) Allergies Allergy/AdvReac Type Severity Reaction Status Date / Time prednisone AdvReac Intermediate hiccups Verified 04/23/25 14:45 [facility] Disclaimer: The information contained in this section may have been updated after the patient was seen, as this information can be updated by other users. Medical History History of peripheral neuropathy History of arthritis Coronary artery disease Abnormal findings on diagnostic imaging of heart and coronary circulation Interatrial cardiac shunt Chest pain Schizophrenia Chronic pain Insomnia Depression Anxiety Alcohol use disorder Surgical History History of excision of lesion History of hernia repair History of appendectomy Family History Family/Other Heart attack Other Family history of aneurysm Family history of diabetes mellitus Social History (Updated 04/23/25 @ 14:45 by Shaila Siu MA) Smoking Status: Current every day smoker alcohol intake: never substance use type: denies use current occupational status: disabled Travel in the last 8 weeks?: None housing: house number of children: 4 Have you lived/traveled outside [place] in past 30 days?: No Contact w/someone who lives/traveled outside [place] past 30 days?: No Exposure to someone with infectious disease in past 14 days?: No Do you have a fever (greater than 100.4 F or 38 C)?: No Have you tested positive for COVID-19?: No Exposed to someone with COVID-19 in past 14 days?: No Do you have a sore throat?: No Do you have a cough?: No Do you have any weakness?: No Do you have any diarrhea?: No Are you experiencing any unusual bleeding?: No Do you have any muscle aches/pain?: No Do you have any abdominal pain?: No Are you experiencing loss of taste or smell?: No Other Medical History Have you received the Pneumonia Vaccine: No ROS Obtained: Yes All systems reviewed & no additional complaints except as documented and Yes Systems reviewed as appropriate & no additional complaints except as documented Physical Exam General General appearance: alert and in no apparent distress Head Head exam: atraumatic, normocephalic and normal inspection Eye Eye exam: Present normal appearance, PERRL and EOMI; Absent scleral icterus ENT ENT exam: Present normal exam and normal external ear exam Neck Neck exam: Present normal inspection and full ROM Chest Chest inspection: Present normal inspection and symmetric chest wall rise Respiratory Respiratory exam: Present normal lung sounds bilaterally; Absent respiratory distress or wheezes Cardiovascular Cardiovascular exam: Present regular rate, normal rhythm and normal heart sounds Abdominal Exam Abdominal exam: Present soft and distention; Absent tenderness, guarding or rebound Extremities Exam Extremities exam: Present normal inspection, full ROM and other (R foot with some swelling of the foot in comparison to L, erythema at the distal foot that does not extend to the ankle. No palpable fluctuance. FROM of the R ankle. ) Back Exam Back exam: Present normal inspection and full ROM Neurological Exam Neurological exam: Present alert and oriented X3 Psychiatric Psychiatric exam: Present normal affect and normal mood Skin Skin exam: Present warm and dry Medical Decision Making Medical Records Medical records reviewed: Yes I reviewed the patient's medical records. Screening: Per USPSTF and CDC recommendations, given the prevalence of disease in our region, it is our hospital?s policy to screen for HIV and viral Hepatitis for all patients aged 18 and over and those with ongoing risk factors. Jesús Inquiry Pt receiving controlled substance: No Vital Signs: 04/23/25 16:09 04/23/25 17:38 Temperature 98.2 F Temperature Source Oral Pulse Rate 101 H Pulse Rate [Right Radial] 108 H Respiratory Rate 18 Blood Pressure 143/100 H Blood Pressure [Right Arm] 161/107 H Blood Pressure Mean [Right Arm] 125 Blood Pressure Source [Right Arm] Automatic Cuff Blood Pressure Position [Right Arm] Sitting 02 Sat by Pulse Oximetry 100 97 Oxygen Delivery Method Room Air Lab Data Lab results reviewed: Yes I reviewed the patient's lab results. Lab Results 04/23/25 16:29: WBC 9.7, RBC 5.35, Hgb 16.8, Hct 47.7, MCV 89.2, MCH 31.4 H, MCHC 35.2, RDW 12.7, Plt Count 227, MPV 10.5 H, Neut % (Auto) 75.3, Lymph % (Auto) 17.1, Cataño % (Auto) 5.0, Eos % (Auto) 2.1, Baso % (Auto) 0.3, Neut # (Auto) 7.3, Lymph # (Auto) 1.7, Cataño # (Auto) 0.5, Eos # (Auto) 0.2, Baso # (Auto) 0.0, PT 11.1, INR 1.00, Sodium 139, Potassium 3.4 L, Chloride 101, Carbon Dioxide 23, Anion Gap 18.4 H, BUN 8 L, Creatinine 0.80, Estimated Creat Clear 125, Estimated GFR 102, Est GFR ( Amer) 124, Glucose 154 H, Lactate 2.7 H, Calcium 9.4, Total Bilirubin 0.9, AST 41, ALT 56, Alkaline Phosphatase 219 H, C-Reactive Protein 15.2 H, Total Protein 8.0, Albumin 4.9, Globulin 3.1, Albumin/Globulin Ratio 1.6 04/23/25 16:29 04/23/25 16:29 Orders (Tests/Meds): ED MEDICATIONS Generic Name Dose Route Start Last Admin Trade Name Freq PRN Reason Stop Dose Admin Cephalexin HCl 500 mg 04/23/25 18:16 Cephalexin 500mg Capsule PO 04/23/25 18:17 ONCE ONE Trimethoprim/Sulfamethoxazole 2 each 04/23/25 18:20 Sulfa/Trimethoprim 1 Tablet PO 04/23/25 18:21 ONCE ONE ORDERS Category Date Time Status Ankle XR -Right minimum 3 Views [XR ankle RT min 3V] Exams 04/23/25 16:34 Completed Stat Fibula/tibia XR right 2 views [XR tibia fibula RT 2V] Exams 04/23/25 16:34 Completed Stat Foot XR right minimum 3 views [XR foot RT min 3V] Stat Exams 04/23/25 16:34 Completed POCUS Point of Care (ER Only) Stat Exams 04/23/25 16:34 Completed CBC w/Auto Diff [Complete Blood Count Auto Diff] Stat Lab 04/23/25 16:29 Completed CMP [Comprehensive Metabolic Panel] Stat Lab 04/23/25 16:29 Completed CRP [C-Reactive Protein] Stat Lab 04/23/25 16:29 Completed Lactic Acid Stat Lab 04/23/25 16:29 Completed Prothrombin Time INR Stat Lab 04/23/25 16:29 Completed Blood Culture Stat Micro 04/23/25 16:53 Received Medical Decision Narrative: Patient is a 49-year-old male with a past medical history of TIA on Eliquis who presented to the emergency department with right foot swelling and redness. On arrival, patient was hemodynamically stable mildly tachycardic. Differential includes but not limited to: Cellulitis, abscess, septic joint, gout, DVT, amongst others. On exam, patient did have some redness to the forefoot that did not extend into the ankle. Patient had mild swelling in comparison to the left. Patient swelling did not trend upwards into the tibia. Patient had full range of motion at the ankle. Patient had no palpable fluctuance. Given the patient was mildly tachycardic, blood cultures were obtained. Labs were obtained x-rays of the right lower extremity were obtained and I plan to do a POCUS. Patient's labs were reviewed and interpreted by myself: CBC showed no leukocytosis, hemoglobin was stable. INR was normal. CMP was unremarkable except for mildly elevated anion gap of 18. Lactate mildly elevated at 2.7. CRP 15.2. X-rays were reviewed and interpreted by myself and showed no soft tissue gas, there is some soft tissue swelling without any bony abnormalities. Bedside ultrasound was performed of the right lower extremity there showed cobblestoning of the right foot consistent with cellulitis no evidence of abscess. Patient was given a dose of Bactrim as well as Keflex in the emergency department with plan to send patient home with double coverage antibiotics. Patient was given return precautions and patient was discharged home in stable condition Critical Care Critical Care Time Critical Care Time: No
--- NOTE | 2025-04-23 16:34 | XR_ITS ---
PROCEDURE INFORMATION: Exam: XR Right Foot Exam date and time: 04/23/2025 4:55 PM Age: 49 years old Clinical indication: Swelling, leg or foot; Additional info: Swelling forefoot TECHNIQUE: Imaging protocol: Radiologic exam of the right foot. Views: 3 or more views. COMPARISON: CR (LEG, TIB-FIB LAT) 04/23/2025 4:55 PM FINDINGS: Bones/joints: No fracture or malalignment. Soft tissues: Mild nonspecific dorsal soft tissue swelling. No soft tissue air. No foreign body. IMPRESSION: 1. Mild nonspecific dorsal soft tissue swelling. No soft tissue air. 2. No acute osseous abnormalities.
--- NOTE | 2025-04-23 16:34 | XR_ITS ---
PROCEDURE INFORMATION: Exam: XR Right Ankle Exam date and time: 04/23/2025 4:55 PM Age: 49 years old Clinical indication: Swelling, leg or foot; Additional info: Swelling forefoot TECHNIQUE: Imaging protocol: Radiologic exam of the right ankle. Views: 3 or more views. COMPARISON: CR (ANKLE, ANKLE AP) 04/23/2025 4:55 PM FINDINGS: Bones/joints: No fracture or malalignment. Minimal spurring at the Achilles tendon calcaneal attachment. Soft tissues: Mild nonspecific soft tissue swelling in the anterior to lateral ankle and lower leg. No soft tissue air or radiopaque foreign body. IMPRESSION: 1. Mild nonspecific soft tissue swelling. No soft tissue air or radiopaque foreign body. 2. No acute osseous abnormalities.
--- NOTE | 2025-04-23 16:34 | XR_ITS ---
PROCEDURE INFORMATION: Exam: XR Right Tibia and Fibula Exam date and time: 04/23/2025 4:55 PM Age: 49 years old Clinical indication: Swelling, leg or foot; Additional info: Swelling forefoot TECHNIQUE: Imaging protocol: Radiologic exam of the right tibia and fibula. Views: 2 views. COMPARISON: CR (LEG, TIB-FIB LAT) 04/23/2025 4:55 PM FINDINGS: Bones/joints: No fracture or malalignment. Minimal osteoarthritic spurring at the medial joint line of the knee. There are 3 small ossifications in the posterolateral knee near the joint line measuring up to 8 mm in size, possibly multi partite fabella although small intra-articular ossifications are difficult to exclude. Soft tissues: Nonspecific soft tissue swelling at the lateral to anterior ankle and distal leg, edema versus cellulitis. No soft tissue air. No foreign body. IMPRESSION: 1. Nonspecific soft tissue swelling, cellulitis versus edema. No soft tissue air or foreign body. 2. No acute osseous abnormalities. 3. Small ossifications in the posterolateral knee measuring up to 8 mm, possibly multi partite fabella although intra-articular ossific bodies are not excluded.
[2025-04-23 16:40] LABS: Hematocrit 47.7 % (42.0-52.0); Hemoglobin 16.8 g/dL (14.1-18.0); Immature Granulocytes % 0.2 %; Mean Corpuscular HGB Conc 35.2 g/dL (31.8-35.4); Mean Corpuscular Hemoglobin 31.4 pg (27.0-31.2); Mean Corpuscular Volume 89.2 fl (80-94); Nucleated Red Blood Cells % 0 %; Platelet Count 227 K/mm3 (142-424); Red Blood Count 5.35 M/mm3 (4.60-6.20); Red Cell Distribution Width-SD 41.3 fL; White Blood Count 9.7 K/mm3 (4.8-10.8)
[2025-04-23 16:56] LABS: INR 1.00 (0.9-1.1); Prothrombin Time 11.1 seconds (10.1-12.5)
[2025-04-23 16:57] LABS: Alanine Aminotransferase 56 U/L (12-78); Albumin Level 4.9 g/dl (3.5-5.0); Albumin/Globulin Ratio 1.6 (1.1-1.8); Alkaline Phosphatase 219 U/L (38-126); Anion Gap 18.4 mEq/L (5-15); Aspartate Amino Transferase 41 U/L (17-59); Bilirubin,Total 0.9 mg/dl (0.2-1.3); Blood Urea Nitrogen 8 mg/dl (9-20); Calcium 9.4 mg/dl (8.4-10.2); Carbon Dioxide 23 mmol/L (22.0-30.0); Chloride 101 mmol/L (98-107); Creatinine Clearance Estimated 125 mL/min (50-200); Creatinine,Serum 0.80 mg/dl (0.66-1.25); Estimated Glomerular Filt Rate 102 ml/min (>60); GFR (African American) 124 ML/MIN (>60); Globulin 3.1 g/dL (1.3-3.2); Glucose 154 mg/dl (74-100); Potassium 3.4 mmoL/L (3.5-5.1); Sodium 139 mmol/L (136-145); Total Protein,Serum 8.0 g/dl (6.3-8.2)
[2025-04-23 17:03] LABS: C-Reactive Protein 15.2 mg/L (0-4)
[2025-04-23 17:38] VITALS: BP 143/100; PULSE 101; O2SAT 97
[2025-04-23 18:05] VITALS: BP 138/89; PULSE 98; O2SAT 96
[2025-04-23 18:30] VITALS: BP 122/85; PULSE 96; O2SAT 96
[2025-04-23] MEDS: SULFA/TRIMETHOPRIM 1 TABLET 2 EACH PO (18:31)
[2025-04-23 18:51] VITALS: BP 122/85; PULSE 101; RESP 17; TEMP 36.6; O2SAT 95
[2025-04-23 20:36] LABS: Reflex Lactic Add Lactic Reflex
== END 2025-04-23 18:53 | disposition home or self-care (01) ==
PROVIDERS: Emergency Provider Student in an Organized Health Care Education/Training Program; PCP Family Medicine
DX: L03.115 Cellulitis of right lower limb (principal); R74.02 Elevation of levels of lactic acid dehydrogenase [LDH]; R22.41 Localized swelling, mass and lump, right lower limb; F17.210 Nicotine dependence, cigarettes, uncomplicated; I10 Essential (primary) hypertension; Z86.73 Personal history of transient ischemic attack (TIA), and cerebral infarction without residual deficits; Z79.01 Long term (current) use of anticoagulants
CPT/HCPCS: 73590; 73610; 73630; 80053; 83605; 85025; 85610; 86140; 87040; 99284

== ENCOUNTER 2025-04-24 11:51 | Emergency (ER) | payer MEDICARE, SELFPAY ==
[2025-04-24 11:55] VITALS: BP 147/97; PULSE 117; O2SAT 98
[2025-04-24 12:00] VITALS: BP 130/95; BP 147/97; PULSE 108; PULSE 110; RESP 18; TEMP 37.1; O2SAT 98; O2SAT 99; BMI 24.0
--- NOTE | 2025-04-24 12:26 | ED_ITS ---
<Statement entered by Teo Walton DO - 04/25/25 07:50> I was consulted by the YARI, and we discussed the complexity of problems being addressed. I approved the treatment and management plan for this patient's care in the emergency department, thus performing a substantive portion of the medical decision making. This patient presented to the emergency department after being diagnosed with cellulitis the day prior. He has not picked up his antibiotics from the pharmacy. He states that he is still having pain and erythema in this region. He also tells us incidentally that he is concerned about Lyme disease. We decided to obtain Lyme titers and in the event that he has Lyme disease we elected to switch his Bactrim to doxycycline and Keflex for coverage of both staph, strep, and any potential atypical microbes such as Borrelia that could be causing his symptoms. Patient was discharged in stable condition. We will follow-up his Lyme titers and call him if he has a positive result. Teo Walton DO Discharge Plan Disposition Patient Disposition: Home, Self-Care Condition: Good Prescriptions Prescriptions: New doxycycline monohydrate 100 mg capsule 100 mg PO BID 10 Days Qty: 20 0RF No Action cyclobenzaprine 10 mg tablet 10 mg PO TID meloxicam 15 mg tablet 15 mg PO DAILY gabapentin 600 mg tablet 600 mg PO HS tramadol 50 mg tablet 100 mg PO TID gabapentin 100 mg capsule 100 mg PO BID Eliquis 5 mg tablet 5 mg PO BID Qty: 60 3RF atorvastatin [Lipitor] 40 mg tablet 40 mg PO DAILY Qty: 90 3RF aspirin 81 mg tablet,chewable 81 mg PO DAILY Qty: 100 3RF lisinopril 40 mg tablet 40 mg PO DAILY Qty: 90 3RF quetiapine [Seroquel] 100 mg tablet 100 mg PO DAILY Qty: 30 2RF diazepam [Valium] 5 mg tablet 5 mg PO QID PRN (Reason: anxiety) Qty: 120 0RF sulfamethoxazole-trimethoprim [Bactrim DS] 800-160 mg tablet 2 tab PO BID 7 Days Qty: 28 0RF cephalexin 500 mg capsule 500 mg PO Q6H 7 Days Qty: 28 0RF Referrals Follow up/Referrals: Guido Warren MD [Primary Care Provider, Family Practice] - See instructions Activity Restrictions/Add. Instructions Additional Instructions/Restrictions: Please return to the emergency department with any worsening signs or symptoms. We will call you with results of your Lyme disease titer, no news is good news. Please follow-up with your PCP in the upcoming days/weeks. It is imperative to take your antibiotics as prescribed. Please do not take the Bactrim. Please switch to doxycycline and Keflex. Please take medications with food. Please continue to utilize all your at home medications as currently prescribed. Clinical Impressions Clinical Impression: Cellulitis of foot Instructions Patient Instructions: Cellulitis Print Language Print Language: Turkmen Discharge ED Provider: Teo Walton Adult HPI General Chief complaint: PAIN Stated complaint: R leg swelling and redness Time Seen by Provider: 04/24/25 12:07 Mode of Arrival: Ambulatory Source of Information: Patient and Spouse Description of Symptoms (Recalled from ER Triage Doc. by RN): Patient presents to ED with swelling and redness to his right foot. Patient was seen yesterday and was dx with cellulitits in the ED. Pt reports he still has some pain and no improvement. Rates pain 5/10 at this time. History of Present Illness HPI narrative: 49-year-old female presents the emergency department with right lower extremity pain and swelling most localized to the fifth digit, patient states this been going on for around 4 to 5 days, patient was actually seen in the emergency department on 04/23/2025 (last night), for similar complaint, he was given a dose of Keflex Bactrim diagnosis cellulitis of the foot, he had ultrasound perf ormed, he is on Eliquis taking medication as prescribed, thus thought less likely to have DVT, x-ray showed no soft tissue gas, laboratory studies were unremarkable no leukocytosis, was diagnosed with simple cellulitis of the right foot. Patient states that he has not , picked up his antibiotic from the pharmacy. Patient denies any fever chills chest pain shortness of breath nausea vomiting constipation diarrhea, denies any tobacco alcohol or drug use specifically IV drug use. Patient believes he was bit by a bunch of ticks , and is worried about Lyme disease . Initial triage vitals are unremarkable. The past medical history is consistent with prior alcohol use disorder, insomnia JOSE MDD, schizophrenia, CAD, hypertension, hyperlipidemia, prior TIA/CVA, data deficient history of ASD. Please note that above description of symptoms, in this electronic medical record under categorization of recalled from ER triage doctor by RN are reflective of an initial nursing assessment, however, is not reflective of my full history and physical exam that was personally taken and clarified. Consequentially, this preceding description of symptoms, which may include the patient's categorized chief complaint in the EMR, do not reflect my personal clinical impression, and the ultimate description of history of present illness and patient stated complaints should be deferred to this section of the note. Unless stated otherwise or congruent with this section of the note, additional signs, symptoms, or incongruence should be interpreted as inaccurate with my clinical impression. Onset (ago): day(s) Related Data Home Medications ?Medication ?Instructions ?Recorded ?Confirmed cyclobenzaprine 10 mg tablet 10 mg PO TID 12/11/2309/16 meloxicam 15 mg tablet 15 mg PO DAILY 12/11/2309/16 gabapentin 100 mg capsule 100 mg PO BID 04/09/2504/23 gabapentin 600 mg tablet 600 mg PO HS 04/09/25 tramadol 50 mg tablet 100 mg PO TID 04/09/2504/23 Previous Rx's ?Medication ?Instructions ?Recorded lisinopril 40 mg tablet 40 mg PO DAILY #90 tabs 10/22 08/16 quetiapine 100 mg tablet (Seroquel) 100 mg PO DAILY #3 0 tabs 12/23/24 diazepam 5 mg tablet (Valium) 5 mg PO QID PRN anxiety #120 tabs 01/12/25 apixaban 5 mg tablet (Eliquis) 5 mg PO BID #60 tabs aspirin 81 mg chewable tablet 81 mg PO DAILY #100 tabs 04/09/25 atorvastatin 40 mg tablet (Lipitor) 40 mg PO DAILY #90 tabs 04/09/25 cephalexin 500 mg capsule 500 mg PO Q6H 7 days #28 cap s 04/23/25 sulfamethoxazole 800 2 tab PO BID 7 days #28 tabs 04/23/25 mg-trimethoprim 160 mg tablet (Bactrim DS) doxycycline monohydrate 100 mg 100 mg PO BID 10 days # 20 caps 04/24/25 capsule Allergies Allergy/AdvReac Type Severity Reaction Status Date / Time prednisone AdvReac Intermediate hiccups Verified 04/23/25 14:45 PFSH PFSH Disclaimer: The information contained in this section may have been updated after the patient was seen, as this information can be updated by other users. Medical History History of peripheral neuropathy History of arthritis Coronary artery disease Abnormal findings on diagnostic imaging of heart and coronary circulation Interatrial cardiac shunt Chest pain Schizophrenia Chronic pain Insomnia Depression Anxiety Alcohol use disorder Surgical History History of excision of lesion History of hernia repair History of appendectomy Family History Family/Other Heart attack Other Family history of aneurysm Family history of diabetes mellitus Social History (Updated 04/23/25 @ 14:45 by Shaila Siu MA) Smoking Status: Current every day smoker alcohol intake: never substance use type: denies use current occupational status: disabled Travel in the last 8 weeks?: None housing: house number of children: 4 Have you lived/traveled outside [place] in past 30 days?: No Contact w/someone who lives/traveled outside [place] past 30 days?: No Exposure to someone with infectious disease in past 14 days?: No Do you have a fever (greater than 100.4 F or 38 C)?: No Have you tested positive for COVID-19?: No Exposed to someone with COVID-19 in past 14 days?: No Do you have a sore throat?: No Do you have a cough?: No Do you have any weakness?: No Do you have any diarrhea?: No Are you experiencing any unusual bleeding?: No Do you have any muscle aches/pain?: No Do you have any abdominal pain?: No Are you experiencing loss of taste or smell?: No Other Medical History Have you received the Pneumonia Vaccine: No ROS Obtained: Yes All systems reviewed & no additional complaints except as doc umented Physical Exam General General appearance: alert and in no apparent distress Head Head exam: atraumatic and normocephalic Eye Eye exam: Present PERRL and EOMI ENT ENT exam: Present mucous membranes moist Neck Neck exam: Present normal inspection Chest Chest inspection: Present normal inspection and symmetric chest wall rise Respiratory Respiratory exam: Present normal lung sounds bilaterally; Absent respiratory distress Cardiovascular Cardiovascular exam: Present regular rate and normal rhythm Abdominal Exam Abdominal exam: Present soft; Absent tenderness Extremities Exam Extremities exam: Present normal inspection, full ROM, tenderness and other (Pain to palpation over the dorsal aspect of the right foot, most notable to the right fifth digit, otherwise neurovascular intact, some hot to touch sensation, erythema around the area, mild soft tissue swelling about the right foot) Neurological Exam Neurological exam: Present alert and oriented X3 Psychiatric Psychiatric exam: Present normal affect Skin Skin exam: Present warm and dry Medical Decision Making Medical Records Medical records reviewed: Yes I reviewed the patient's medical records. Screening: Per USPSTF and CDC recommendations, given the prevalence of disease in our region, it is our hospital?s policy to screen for HIV and viral Hepatitis for all patients aged 18 and over and those with ongoing risk factors. Jesús Inquiry Pt receiving controlled substance: No Jesús was queried for this patient: No Vital Signs: 04/24/25 11:55 04/24/25 12:00 04/24/25 12:00 Temperature 98.8 F Temperature Source Oral Pulse Rate 117 H 110 H Pulse Rate [Right Brachial] 108 H Respiratory Rate 18 Blood Pressure 147/97 H 130/95 H Blood Pressure [Right Arm] 147/97 H Blood Pressure Mean [Right Arm] 113 Blood Pressure Source Blood Pressure Source [Right Arm] Automatic Cuff Blood Pressure Position Blood Pressure Position [Right Arm] Sitting 02 Sat by Pulse Oximetry 98 98 99 Oxygen Delivery Method Room Air 04/24/25 12:35 Temperature 98.4 F Temperature Source Oral Pulse Rate 90 Pulse Rate [Right Brachial] Respiratory Rate 18 Blood Pressure 147/90 H Blood Pressure [Right Arm] Blood Pressure Mean [Right Arm] Blood Pressure Source Automatic Cuff Blood Pressure Source [Right Arm] Blood Pressure Position Sitting Blood Pressure Position [Right Arm] 02 Sat by Pulse Oximetry Oxygen Delivery Method Room Air Lab Data Lab results reviewed: Yes I reviewed the patient's lab results. Orders (Tests/Meds): ED MEDICATIONS Discontinued Medications Generic Name Dose Route Start Last Admin Trade Name Freq PRN Reason Stop Dose Admin Hydrocodone Bitart/Acetaminophen 1 tab 04/24/25 12:33 04/24/25 12:38 Hydrocodone/Apap 5/325 Mg Tablet PO 04/24/25 12:34 1 tab ONCE ONE Administration ORDERS Category Date Time Status Lyme Ab, Modified 2-Tier Stat Lab 04/24/25 12:36 Received Medical Decision Narrative: 49-year-old male presents to the emergency department with right pain and swelling for 5 days, differential diagnose clued but not limited to, cellulitis, Lyme disease, insect sting/bite, arachnid bite, dependent edema, lymphedema among others. I discussed this patient's case with the attending physician Dr. Walton Patient had quite a significant workup last night, patient has not yet taken his p.o. antibiotics that he is prescribed last night, did have 1 dose of Keflex and Bactrim here in the emerged part, patient is quite worried about Lyme disease , and does endorse recent tick exposure, thus we will obtain Lyme antibody titer, no soft tissue gas on x-ray, laboratory studies unremarkable last night, no concern for abscess, low likelihood for DVT as patient is on Eliquis. I will [place] the patient's area of erythema, and treat the patient with p.o. 5 mg [place] for pain while using the emergency department. Patient was given strict ED return precautions. Patient will follow-up with PCP in the upcoming days. Will call patient with results of Lyme titer or patient to follow-up with PCP for this. Patient has not yet even had a full 48 hours of full antibiotic therapy. Recommend continue antibiotic therapy, will discontinue Bactrim as doxycycline will cover for MRSA in this patient's case. Patient and family voiced understanding and agreement with current treatment plan/discharge plan. Patient was given strict ED return precautions. Critical Care Critical Care Time Critical Care Time: No
[2025-04-24 12:35] VITALS: BP 147/90; PULSE 90; RESP 18; TEMP 36.9; O2SAT 98
[2025-04-24] MEDS: HYDROCODONE/APAP 5/325 MG TABLET 1 TAB PO (12:38)
[2025-04-24 12:42] LABS: Lyme Ab IgM CIA ND
[2025-04-25 09:44] LABS: Lyme Ab CIA Negative (Negative)
== END 2025-04-24 12:42 | disposition home or self-care (01) ==
PROVIDERS: Physician Assistant; Emergency Provider Student in an Organized Health Care Education/Training Program; PCP Family Medicine
DX: L03.115 Cellulitis of right lower limb (principal)
CPT/HCPCS: 86618; 99283

== ENCOUNTER 2025-04-26 22:38 | Emergency (ER) | payer MEDICARE, SELFPAY ==
[2025-04-26 22:52] VITALS: BP 152/96; PULSE 107; RESP 18; TEMP 36.8; O2SAT 99; BMI 24.0
--- NOTE | 2025-04-26 23:22 | XR_ITS ---
PROCEDURE INFORMATION: Exam: XR Right Foot Exam date and time: 04/26/2025 11:29 PM Age: 49 years old Clinical indication: Swelling, leg or foot; Additional info: Right little toe abcess/cellulitis TECHNIQUE: Imaging protocol: Radiologic exam of the right foot. Views: 3 or more views. COMPARISON: CR (FOOT, FOOT AP) 04/23/2025 4:55 PM FINDINGS: Bones/joints: No acute fracture or dislocation. No cortical destruction. No significant loss of joint space. Soft tissues: Soft tissue swelling about the 5th toe. No soft tissue gas. No radiopaque foreign body. IMPRESSION: No acute osseous abnormality.
--- NOTE | 2025-04-26 23:25 | [facility].EDGENADL ---
Discharge Plan Disposition Patient Disposition: Home, Self-Care Prescriptions Prescriptions: No Action cyclobenzaprine 10 mg tablet 10 mg PO TID meloxicam 15 mg tablet 15 mg PO DAILY gabapentin 600 mg tablet 600 mg PO HS tramadol 50 mg tablet 100 mg PO TID gabapentin 100 mg capsule 100 mg PO BID Eliquis 5 mg tablet 5 mg PO BID Qty: 60 3RF atorvastatin [Lipitor] 40 mg tablet 40 mg PO DAILY Qty: 90 3RF aspirin 81 mg tablet,chewable 81 mg PO DAILY Qty: 100 3RF lisinopril 40 mg tablet 40 mg PO DAILY Qty: 90 3RF quetiapine [Seroquel] 100 mg tablet 100 mg PO DAILY Qty: 30 2RF diazepam [Valium] 5 mg tablet 5 mg PO QID PRN (Reason: anxiety) Qty: 120 0RF sulfamethoxazole-trimethoprim [Bactrim DS] 800-160 mg tablet 2 tab PO BID 7 Days Qty: 28 0RF cephalexin 500 mg capsule 500 mg PO Q6H 7 Days Qty: 28 0RF doxycycline monohydrate 100 mg capsule 100 mg PO BID 10 Days Qty: 20 0RF Referrals Follow up/Referrals: Guido Warren MD [Primary Care Provider, Family Practice] - See instructions Activity Restrictions/Add. Instructions Additional Instructions/Restrictions: You can discontinue your oral antibiotics. Recommend following up with your PCP for further assessment. If over the next couple of days the redness is continuing to worsen, recommend rapid reassessment. Clinical Impressions Clinical Impression: Abscess of right foot including toes, Cellulitis and abscess of foot Instructions Patient Instructions: DI for Skin Abscess Print Language Print Language: Swedish Discharge ED Provider: René Oliver General Adult [facility] General Chief complaint: Skin/Abscess/Foreign Body Stated complaint: 04-24 he was seen in ER, right leg pain,swelling , Time Seen by Provider: 04/26/25 22:43 Mode of Arrival: Wheelchair Source of Information: Patient Description of Symptoms (Recalled from ER Triage Doc. by RN): Pt to ED with c/o pain and redness to right foot. Pt reports this started Sunday of last week. Pt was seen here in the ED on and Sunday. Pt reports he was given antibiotics and told to come back in 48 hours if redness was worse. Redness, warmth, and swelling noted to right foot. Area was marked on Sunday here in the ED, and has spread outside of marked area since then. History of Present Illness HPI narrative: 49-year-old patient presents to ED with c/o pain and redness to right foot. Pt reports this started Sunday of last week. Pt was seen here in the ED on and Sunday. Pt reports he was given antibiotics and told to come back in 48 hours if redness was worse. Redness, warmth, and swelling noted to right foot. Area was marked on Sunday here in the ED, and has spread outside of marked area since then. He did not initially take his antibiotics, but has been taking them for the last 2 days. He does not have any history of diabetes. Related Data Home Medications ?Medication ?Instructions ?Recorded ?Confirmed cyclobenzaprine 10 mg tablet 10 mg PO TID 12/11/23 04/23/25 meloxicam 15 mg tablet 15 mg PO DAILY 12/11/23 04/23/25 gabapentin 100 mg capsule 100 mg PO BID 04/09/25 04/23/25 gabapentin 600 mg tablet 600 mg PO HS 04/09/25 04/23/25 tramadol 50 mg tablet 100 mg PO TID 04/09/25 04/23/25 Previous Rx's ?Medication ?Instructions ?Recorded lisinopril 40 mg tablet 40 mg PO DAILY #90 tabs 11/10/24 quetiapine 100 mg tablet (Seroquel) 100 mg PO DAILY #30 tabs 12/23/24 diazepam 5 mg tablet (Valium) 5 mg PO QID PRN anxiety #120 tabs 01/12/25 apixaban 5 mg tablet (Eliquis) 5 mg PO BID #60 tabs 04/09/25 aspirin 81 mg chewable tablet 81 mg PO DAILY #100 tabs 04/09/25 atorvastatin 40 mg tablet (Lipitor) 40 mg PO DAILY #90 tabs 04/09/25 cephalexin 500 mg capsule 500 mg PO Q6H 7 days #28 caps 04/23/25 sulfamethoxazole 800 2 tab PO BID 7 days #28 tabs 04/23/25 mg-trimethoprim 160 mg tablet (Bactrim DS) doxycycline monohydrate 100 mg 100 mg PO BID 10 days #20 caps 04/24/25 capsule Allergies Allergy/AdvReac Type Severity Reaction Status Date / Time prednisone AdvReac Intermediate hiccups Verified 04/23/25 14:45 [facility] Disclaimer: The information contained in this section may have been updated after the patient was seen, as this information can be updated by other users. Medical History History of peripheral neuropathy History of arthritis Coronary artery disease Abnormal findings on diagnostic imaging of heart and coronary circulation Interatrial cardiac shunt Chest pain Schizophrenia Chronic pain Insomnia Depression Anxiety Alcohol use disorder Surgical History History of excision of lesion History of hernia repair History of appendectomy Family History Family/Other Heart attack Other Family history of aneurysm Family history of diabetes mellitus Social History (Updated 04/23/25 @ 14:45 by Shaila Siu MA) Smoking Status: Current every day smoker alcohol intake: never substance use type: denies use current occupational status: disabled Travel in the last 8 weeks?: None housing: house number of children: 4 Have you lived/traveled outside [place] in past 30 days?: No Contact w/someone who lives/traveled outside [place] past 30 days?: No Exposure to someone with infectious disease in past 14 days?: No Do you have a fever (greater than 100.4 F or 38 C)?: No Have you tested positive for COVID-19?: No Exposed to someone with COVID-19 in past 14 days?: No Do you have a sore throat?: No Do you have a cough?: No Do you have any weakness?: No Do you have any diarrhea?: No Are you experiencing any unusual bleeding?: No Do you have any muscle aches/pain?: No Do you have any abdominal pain?: No Are you experiencing loss of taste or smell?: No Other Medical History Have you received the Pneumonia Vaccine: No ROS Obtained: Yes All systems reviewed & no additional complaints except as documented Physical Exam General General appearance: alert and in no apparent distress Head Head exam: atraumatic and normocephalic Eye Eye exam: Present normal appearance, PERRL and EOMI ENT ENT exam: Present normal oropharynx and normal external ear exam Neck Neck exam: Present normal inspection and full ROM Chest Chest inspection: Present normal inspection and symmetric chest wall rise; Absent tenderness Respiratory Respiratory exam: Present normal lung sounds bilaterally; Absent respiratory distress Cardiovascular Cardiovascular exam: Present regular rate and normal rhythm Abdominal Exam Abdominal exam: Present soft; Absent distention, tenderness or guarding Extremities Exam Extremities exam: Present other (Cellulitis and abscess of the right little toe with erythema extending to the level of the lateral malleolus.); Absent edema or joint swelling Back Exam Back exam: Present normal inspection; Absent tenderness Neurological Exam Neurological exam: Present alert and oriented X3; Absent motor sensory deficit Psychiatric Psychiatric exam: Present normal affect and normal mood Skin Skin exam: Present warm, dry and normal color Lymphatic Lymphatic Findings: no adenopathy Medical Decision Making Medical Records Medical records reviewed: Yes I reviewed the patient's medical records. Screening: Per USPSTF and CDC recommendations, given the prevalence of disease in our region, it is our hospital?s policy to screen for HIV and viral Hepatitis for all patients aged 18 and over and those with ongoing risk factors. Jesús Inquiry Pt receiving controlled substance: No Jesús was queried for this patient: No Vital Signs: 04/26/25 22:52 Temperature 98.2 F Temperature Source Oral Pulse Rate [Left Radial] 107 H Respiratory Rate 18 Blood Pressure [Right Arm] 152/96 H Blood Pressure Mean [Right Arm] 114 Blood Pressure Source [Right Arm] Automatic Cuff Blood Pressure Position [Right Arm] Sitting 02 Sat by Pulse Oximetry 99 Oxygen Delivery Method Room Air Lab Data Lab results reviewed: Yes I reviewed the patient's lab results. Lab Results 04/26/25 23:15: WBC 6.7, RBC 4.94, Hgb 15.4, Hct 44.0, MCV 89.1, MCH 31.2, MCHC 35.0, RDW 12.9, Plt Count 230, MPV 11.1 H, Neut % (Auto) 63.1, Lymph % (Auto) 25.0, [place] % (Auto) 7.6, Eos % (Auto) 3.4, Baso % (Auto) 0.6, Neut # (Auto) 4.2, Lymph # (Auto) 1.7, [place] # (Auto) 0.5, Eos # (Auto) 0.2, Baso # (Auto) 0.0, Sodium 139, Potassium 3.6, Chloride 105, Carbon Dioxide 24, Anion Gap 13.6, BUN 9, Creatinine 0.70, Estimated Creat Clear 143, Estimated GFR 119, Est GFR ( Amer) 144, Glucose 112 H, Calcium 9.2, Total Bilirubin 0.6, AST 30, ALT 37, Alkaline Phosphatase 172 H, Total Protein 6.6, Albumin 4.0, Globulin 2.6, Albumin/Globulin Ratio 1.5 04/26/25 23:15 04/26/25 23:15 Orders (Tests/Meds): ED MEDICATIONS Discontinued Medications Generic Name Dose Route Start Last Admin Trade Name Melba PRN Reason Stop Dose Admin Dalbavancin 1,500 mg/ Dextrose 250 mls @ 500 mls/hr 04/26/25 23:45 04/27/25 00:03 IV 04/26/25 23:46 500 mls/hr ONCE ONE Administration ORDERS Category Date Time Status Foot XR right minimum 3 views [XR foot RT min 3V] Stat Exams 04/26/25 23:22 Completed CBC w/Auto Diff [Complete Blood Count Auto Diff] Stat Lab 04/26/25 23:15 Completed CMP [Comprehensive Metabolic Panel] Stat Lab 04/26/25 23:15 Completed HIV Combo Stat Lab 04/26/25 23:15 Received Hepatitis C Ab Qual. W/ RFX Stat Lab 04/26/25 23:15 Received Blood Culture Stat Micro 04/26/25 23:27 Received Wound Culture and Gram Stain Stat Micro 04/26/25 23:21 Received Medical Decision Narrative: 49-year-old male presents for third time with worsening right foot infection. It now seems to have developed an abscess over the metacarpal head of the fifth toe. History was obtained via interactive discussion with patient, family, chart review. On arrival, patient is [afebrile, hemodynamically stable, satting appropriately, alert, oriented x4, GCS 15], moving all extremities spontaneously. Full physical exam performed and significant for abscess over the right fifth toe Differential includes but is not limited to abscess, cellulitis, osteomyelitis. Bedside ultrasound shows small abscess over the distal foot/proximal fifth digit Workup initiated including CBC CMP blood culture wound culture. The abscess was incised, drained and irrigated I had an extensive discussion with patient regarding his presentation. Given he has failed outpatient antibiotics, I recommended that he come into the hospital for IV antibiotic therapy. Other option is dalbavancin therapy. Unfortunately, it is becoming less and less covered by insurance companies and so he may end up paying $5000 [id number] or more for this antibiotic. But it would allow him to go home. I also discussed that he could leave AMA and continue his oral antibiotics but that would not be advisable given he is continue to worsen on them. After discussion, patient reports that he will talk with his insurance company and would prefer to be discharged after receiving Dalvance. Patient was given appropriate dose of Dalvance and discharged in stable condition with return precautions. Given patient history, exam and workup, patient's presentation most likely represents abscess and cellulitis of the right foot. Procedures Risk/Benefits of Procedure(s) Were Explained: Yes Abscess I/D Site: foot Side (if applicable): right Technique: incised with #11 blade Amount of fluid expressed (mL): 4 Irrigation: Yes Packing used?: none Limited Ultrasound Indication:: Limited soft tissue ultrasound Indication: Soft tissue swelling and redness Identified structures: Location: Skin and subcutaneous tissues of the right lateral foot Findings: Cobblestoning surrounding a focal loculated fluid collection consistent with abscess, approximately 2 cm Impression: Abscess and cellulitis of the right lateral foot Images were saved to permanent archive The study was technically adequate Soft Tissue CPT Codes: CPT Lower Extremity: 25536-17 This study was performed by me, Dr. Oliver, and I personally interpreted all images/videos. Critical Care Critical Care Time Critical Care Time: No
[2025-04-26 23:32] LABS: Hematocrit 44.0 % (42.0-52.0); Hemoglobin 15.4 g/dL (14.1-18.0); Immature Granulocytes % 0.3 %; Mean Corpuscular HGB Conc 35.0 g/dL (31.8-35.4); Mean Corpuscular Hemoglobin 31.2 pg (27.0-31.2); Mean Corpuscular Volume 89.1 fl (80-94); Nucleated Red Blood Cells % 0 %; Platelet Count 230 K/mm3 (142-424); Red Blood Count 4.94 M/mm3 (4.60-6.20); Red Cell Distribution Width-SD 41.6 fL; White Blood Count 6.7 K/mm3 (4.8-10.8)
[2025-04-26 23:48] LABS: Alanine Aminotransferase 37 U/L (12-78); Albumin Level 4.0 g/dl (3.5-5.0); Albumin/Globulin Ratio 1.5 (1.1-1.8); Alkaline Phosphatase 172 U/L (38-126); Anion Gap 13.6 mEq/L (5-15); Aspartate Amino Transferase 30 U/L (17-59); Bilirubin,Total 0.6 mg/dl (0.2-1.3); Blood Urea Nitrogen 9 mg/dl (9-20); Calcium 9.2 mg/dl (8.4-10.2); Carbon Dioxide 24 mmol/L (22.0-30.0); Chloride 105 mmol/L (98-107); Creatinine Clearance Estimated 143 mL/min (50-200); Creatinine,Serum 0.70 mg/dl (0.66-1.25); Estimated Glomerular Filt Rate 119 ml/min (>60); GFR (African American) 144 ML/MIN (>60); Globulin 2.6 g/dL (1.3-3.2); Glucose 112 mg/dl (74-100); Potassium 3.6 mmoL/L (3.5-5.1); Sodium 139 mmol/L (136-145); Total Protein,Serum 6.6 g/dl (6.3-8.2)
[2025-04-27] VITALS: BP 131/88; PULSE 94; O2SAT 97
[2025-04-27] MEDS: DALBAVANCIN HCL 1,500 MG in DEXTROSE 5 % IN WATER 250 ML 500 MG IV (00:03)
[2025-04-27 00:30] VITALS: BP 130/94; PULSE 93; O2SAT 96
[2025-04-27 00:32] VITALS: BP 130/94; PULSE 94; RESP 20; TEMP 36.6; O2SAT 97
== END 2025-04-27 00:43 | disposition home or self-care (01) ==
PROVIDERS: Emergency Provider Emergency Medicine; PCP Family Medicine
DX: L02.415 Cutaneous abscess of right lower limb (principal); L03.115 Cellulitis of right lower limb; B95.7 Other staphylococcus as the cause of diseases classified elsewhere; M79.671 Pain in right foot; F17.210 Nicotine dependence, cigarettes, uncomplicated
CPT/HCPCS: 10060; 73630; 80053; 85025; 86803; 87040; 87070; 87077; 87186; 87205; 87389; 96374; 99284; J0875; J7060